=== PATIENT | female | born 1980 | race Caucasian/White ===

== ENCOUNTER 2020-04-08 11:55 | Outpatient (REF) | payer OTHER, SELFPAY | END 2020-04-08 11:56 | disposition home or self-care (01) | LOC: HO.LNP 11:55 | PROVIDERS: Visit Provider Internal Medicine Medical Oncology | DX: L08.9 Local infection of the skin and subcutaneous tissue, unspecified (principal) | CPT/HCPCS: 87071; 87147; 87205 ==

== ENCOUNTER 2020-10-19 09:02 | Outpatient (REF) | payer OTHER, SELFPAY ==
[2020-10-19 10:21] LABS: MANUAL DIFF FLAG NO
[2020-10-19 10:26] LABS: Basophils Absolute Auto 0.1 X10*3/uL (0.0-0.2); Basophils Percent Auto 0.4 % (0-2); Eosinophils Absolute Auto 0.4 X10*3/uL (0.0-0.4); Eosinophils Percent Auto 3.6 % (0-4); Hematocrit 46.3 % (37-47); Hemoglobin 15.8 g/dl (12.0-16.0); Imm Gran Abs Auto 0.17 X10*3/uL (0.00-0.03); Imm Gran Pct Auto 1.5 % (0.0-0.4); Lymphocytes Absolute Auto 2.7 X10*3/uL (1.2-4.9); Lymphocytes Percent Auto 23.6 % (20-40); Mean Corpuscular HGB Conc 34.1 g/dl (31.0-35.0); Mean Corpuscular Hemoglobin 32.1 pg (27.0-33.0); Mean Corpuscular Volume 94.1 fL (80-98); Mean Platelet Volume 9.8 fL (9.4-12.3); Monocytes Absolute Auto 0.6 X10*3/uL (0.1-1.2); Neutrophils Absolute Auto 7.5 X10*3/uL (2.0-8.3); Neutrophils Percent Auto 65.9 % (45-73); Platelet Count 273 X10*3/uL (160-400); Red Blood Count 4.92 X10*6/uL (4.20-5.50); White Blood Count 11.4 X10*3/uL (4.8-10.8)
[2020-10-19 10:51] LABS: Alanine Aminotransferase 63 U/L (0-31); Albumin Level 3.9 g/dL (3.5-5.0); Alkaline Phosphatase 100 U/L (39-117); Anion Gap 14 (12-20); Aspartate Amino Transferase 38 U/L (5-31); Bilirubin Total 0.4 mg/dL (0.0-1.0); Blood Urea Nitrogen 10 mg/dL (9-16); Calcium 8.7 mg/dL (8.4-10.2); Carbon Dioxide 22 mmol/L (22-29); Chloride 105 mmol/L (96-108); Cholesterol 148 mg/dL; Estimated Glomerular Filt Rate > 60; Glucose Fasting 328 mg/dL (60-99); HDL Cholesterol 24 mg/dL; Sodium 137 mmol/L (135-145); Total Protein 6.3 g/dL (6.5-8.0); Triglycerides 416 mg/dL
[2020-10-19 11:10] LABS: Free T4 (Free Thyroxine) 1.01 ng/dL (0.71-1.85); Thyroid Stimulating Hormone 1.17 uIU/mL (0.32-4.0)
== END 2020-10-19 09:03 | disposition home or self-care (01) ==
LOC: HO.10HDL 09:02
PROVIDERS: Visit Provider Internal Medicine Medical Oncology
DX: E66.01 Morbid (severe) obesity due to excess calories (principal); E28.2 Polycystic ovarian syndrome; R40.0 Somnolence
CPT/HCPCS: 36415; 80053; 80061; 84439; 84443; 85025

== ENCOUNTER 2021-03-19 09:22 | Outpatient (REF) | payer OTHER, SELFPAY ==
[2021-03-19 11:29] LABS: MANUAL DIFF FLAG NO
[2021-03-19 11:35] LABS: Basophils Percent Auto 0.3 % (0-2); Eosinophils Absolute Auto 0.4 X10*3/uL (0.0-0.4); Eosinophils Percent Auto 2.7 % (0-4); Hematocrit 44.3 % (37-47); Hemoglobin 15.3 g/dl (12.0-16.0); Imm Gran Abs Auto 0.17 X10*3/uL (0.00-0.03); Imm Gran Pct Auto 1.2 % (0.0-0.4); Lymphocytes Absolute Auto 2.9 X10*3/uL (1.2-4.9); Lymphocytes Percent Auto 21.2 % (20-40); Mean Corpuscular HGB Conc 34.5 g/dl (31.0-35.0); Mean Corpuscular Hemoglobin 32.3 pg (27.0-33.0); Mean Corpuscular Volume 93.5 fL (80-98); Monocytes Absolute Auto 0.6 X10*3/uL (0.1-1.2); Monocytes Percent Auto 4.4 % (2-11); Neutrophils Absolute Auto 9.7 X10*3/uL (2.0-8.3); Neutrophils Percent Auto 70.2 % (45-73); Platelet Count 324 X10*3/uL (160-400); Red Blood Count 4.74 X10*6/uL (4.20-5.50); Red Cell Distribution Width 11.9 % (11.0-16.0); White Blood Count 13.8 X10*3/uL (4.8-10.8)
[2021-03-19 12:19] LABS: Estimated Average Glucose 197 mg/dL; Hemoglobin A1c % 8.5 %
[2021-03-19 12:22] LABS: Alanine Aminotransferase 50 U/L (0-31); Albumin Level 3.9 g/dL (3.5-5.0); Alkaline Phosphatase 70 U/L (39-117); Anion Gap 15 (12-20); Aspartate Amino Transferase 34 U/L (5-31); Bilirubin Total 0.4 mg/dL (0.0-1.0); Blood Urea Nitrogen 9 mg/dL (9-16); Calcium 9.1 mg/dL (8.4-10.2); Carbon Dioxide 22 mmol/L (22-29); Chloride 103 mmol/L (96-108); Cholesterol 137 mg/dL; Estimated Glomerular Filt Rate > 60; Glucose Fasting 267 mg/dL (60-99); HDL Cholesterol 23 mg/dL; LDL Cholesterol Calculated 70 mg/dl; Sodium 136 mmol/L (135-145); Total Protein 6.2 g/dL (6.5-8.0); Triglycerides 223 mg/dL
[2021-03-19 12:23] LABS: Microalbum/Creatinine Ratio Ur 5.2 ug/mg cr
== END 2021-03-19 09:23 | disposition home or self-care (01) ==
LOC: HO.HMGCLDS 09:22
PROVIDERS: PCP Internal Medicine Medical Oncology; Visit Provider Internal Medicine Medical Oncology
DX: E11.9 Type 2 diabetes mellitus without complications (principal); E66.01 Morbid (severe) obesity due to excess calories
CPT/HCPCS: 36415; 80053; 80061; 82043; 83036; 85025

== ENCOUNTER 2021-06-07 10:43 | Outpatient (REF) | payer OTHER, SELFPAY ==
[2021-06-07 14:02] LABS: MANUAL DIFF FLAG NO
[2021-06-07 14:07] LABS: Basophils Percent Auto 0.3 % (0-2); Eosinophils Absolute Auto 0.2 X10*3/uL (0.0-0.4); Eosinophils Percent Auto 1.3 % (0-4); Hematocrit 46.1 % (37.0-47.0); Hemoglobin 15.6 g/dl (12.0-16.0); Imm Gran Abs Auto 0.11 X10*3/uL (0.00-0.03); Imm Gran Pct Auto 0.9 % (0.0-0.4); Lymphocytes Absolute Auto 3.2 X10*3/uL (1.2-4.9); Lymphocytes Percent Auto 26.8 % (20-40); Mean Corpuscular HGB Conc 33.8 g/dl (31.0-35.0); Mean Corpuscular Hemoglobin 32.3 pg (27.0-33.0); Mean Corpuscular Volume 95.4 fL (80.0-98.0); Mean Platelet Volume 10.1 fL (9.4-12.3); Monocytes Absolute Auto 0.5 X10*3/uL (0.1-1.2); Monocytes Percent Auto 4.4 % (2-11); Neutrophils Absolute Auto 7.9 x10*3/uL (2.0-8.3); Neutrophils Percent Auto 66.3 % (45-73); Platelet Count 322 X10*3/uL (160-400); Red Blood Count 4.83 X10*6/uL (4.20-5.50); Red Cell Distribution Width 11.8 % (11.0-16.0); White Blood Count 11.9 X10*3/uL (4.8-10.8)
[2021-06-07 14:26] LABS: Estimated Average Glucose 197 mg/dL; Hemoglobin A1c % 8.5 %
[2021-06-07 14:28] LABS: Alanine Aminotransferase 37 U/L (0-31); Alkaline Phosphatase 64 U/L (39-117); Anion Gap 12 (12-20); Aspartate Amino Transferase 33 U/L (5-31); Bilirubin Total 0.2 mg/dL (0.0-1.0); Blood Urea Nitrogen 8 mg/dL (9-16); Calcium 9.1 mg/dL (8.4-10.2); Carbon Dioxide 26 mmol/L (22-29); Chloride 104 mmol/L (96-108); Cholesterol 149 mg/dL; Estimated Glomerular Filt Rate > 60; Glucose Fasting 188 mg/dL (60-99); HDL Cholesterol 23 mg/dL; LDL Cholesterol Calculated 81 mg/dl; Potassium 4.4 mmol/L (3.3-5.1); Sodium 138 mmol/L (135-145); Total Protein 6.5 g/dL (6.5-8.0); Triglycerides 226 mg/dL
== END 2021-06-07 10:44 | disposition home or self-care (01) ==
LOC: HO.HMGCLDS 10:43
PROVIDERS: PCP Internal Medicine Medical Oncology; Visit Provider Internal Medicine Medical Oncology
DX: E66.01 Morbid (severe) obesity due to excess calories (principal); E11.9 Type 2 diabetes mellitus without complications
CPT/HCPCS: 36415; 80053; 80061; 83036; 85025

== ENCOUNTER → 2021-11-04 10:54 | Outpatient (REF) | payer OTHER, SELFPAY | LOC: HO.SL 10:54 | PROVIDERS: PCP Internal Medicine Medical Oncology; Visit Provider Internal Medicine Medical Oncology | DX: G47.30 Sleep apnea, unspecified (principal); R06.83 Snoring; E66.01 Morbid (severe) obesity due to excess calories | CPT/HCPCS: 95806 ==

== ENCOUNTER 2021-11-05 10:50 | Outpatient (REF) | payer OTHER, SELFPAY ==
[2021-11-05 13:42] LABS: MANUAL DIFF FLAG NO
[2021-11-05 13:45] LABS: Basophils Absolute Auto 0.1 X10*3/uL (0.0-0.2); Basophils Percent Auto 0.5 % (0-2); Eosinophils Absolute Auto 0.3 X10*3/uL (0.0-0.4); Eosinophils Percent Auto 2.9 % (0-4); Hematocrit 46.8 % (37.0-47.0); Hemoglobin 15.9 g/dl (12.0-16.0); Imm Gran Abs Auto 0.18 X10*3/uL (0.00-0.03); Imm Gran Pct Auto 1.7 % (0.0-0.4); Lymphocytes Absolute Auto 3.1 X10*3/uL (1.2-4.9); Lymphocytes Percent Auto 28.2 % (20-40); Mean Corpuscular Hemoglobin 31.8 pg (27.0-33.0); Mean Corpuscular Volume 93.6 fL (80.0-98.0); Mean Platelet Volume 10.2 fL (9.4-12.3); Monocytes Absolute Auto 0.6 X10*3/uL (0.1-1.2); Monocytes Percent Auto 5.7 % (2-11); Neutrophils Absolute Auto 6.6 x10*3/uL (2.0-8.3); Platelet Count 295 X10*3/uL (160-400); Red Cell Distribution Width 12.8 % (11.0-16.0); White Blood Count 10.8 X10*3/uL (4.8-10.8)
[2021-11-05 13:57] LABS: Alanine Aminotransferase 59 U/L (0-31); Albumin Level 3.8 g/dL (3.5-5.0); Alkaline Phosphatase 82 U/L (39-117); Anion Gap 14 (12-20); Aspartate Amino Transferase 47 U/L (5-31); Bilirubin Total 0.6 mg/dL (0.0-1.0); Blood Urea Nitrogen 9 mg/dL (9-16); Calcium 9.3 mg/dL (8.4-10.2); Carbon Dioxide 21 mmol/L (22-29); Chloride 103 mmol/L (96-108); Estimated Glomerular Filt Rate > 60; Glucose Fasting 284 mg/dL (60-99); Potassium 4.2 mmol/L (3.3-5.1); Sodium 134 mmol/L (135-145); Total Protein 6.3 g/dL (6.5-8.0)
[2021-11-05 14:04] LABS: Estimated Average Glucose 237 mg/dL; Hemoglobin A1c % 9.9 %
[2021-11-05 14:21] LABS: Creatinine Urine 74.87 mg/dL; Microalbum/Creatinine Ratio Ur 9.3 ug/mg cr
== END 2021-11-05 10:51 | disposition home or self-care (01) ==
LOC: HO.HMGCLDS 10:50
PROVIDERS: PCP Internal Medicine Medical Oncology; Visit Provider Internal Medicine Medical Oncology
DX: E66.01 Morbid (severe) obesity due to excess calories (principal); E11.9 Type 2 diabetes mellitus without complications
CPT/HCPCS: 36415; 80053; 82043; 83036; 85025

== ENCOUNTER 2021-12-10 08:28 | Outpatient (REF) | payer OTHER, SELFPAY | END 2021-12-10 08:29 | disposition home or self-care (01) | LOC: HO.HOSX 08:28 | PROVIDERS: Visit Provider Physician Assistant | DX: Z13.89 Encounter for screening for other disorder (principal) ==

== ENCOUNTER → 2022-02-09 08:44 | Outpatient (BNVA) | payer OTHER, SELFPAY | PROVIDERS: PCP Internal Medicine Medical Oncology; Visit Provider Physician Assistant Surgical | DX: E66.01 Morbid (severe) obesity due to excess calories (principal) | CPT/HCPCS: 99202 ==

== ENCOUNTER 2022-02-14 15:46 | Outpatient (REF) | payer OTHER, SELFPAY ==
[2022-02-15 14:11] LABS: H Pylori Breath Test Positive (Negative)
== END 2022-02-14 15:47 | disposition home or self-care (01) ==
LOC: HO.LNP 15:46
PROVIDERS: Visit Provider Physician Assistant Surgical
DX: E66.01 Morbid (severe) obesity due to excess calories (principal)
CPT/HCPCS: 83013

== ENCOUNTER → 2022-02-15 12:43 | Outpatient (REF) | payer OTHER, SELFPAY ==
--- NOTE | ~2022-02-15 | XR_ITS ---
EXAMINATION: XR CHEST CLINICAL INFORMATION: Morbid/severe obesity due to excess calories. COMPARISON: Chest 07/08/2019 TECHNIQUE: 2 views of the chest were obtained. FINDINGS: The lungs are well-expanded with minimal haziness in the right CP angle which could be atelectasis or scarring. Rest of the lungs are clear. The heart size and pulmonary vascularity is normal. No gross bony abnormality seen. XR/XR chest 2V IMPRESSION: Suspect minimal scarring or atelectasis right middle lobe.
--- NOTE | 2022-02-15 12:48 | ECG_ITS ---
Test Reason : E66.01 Blood Pressure : / mmHG Vent. Rate : 098 BPM Atrial Rate : 098 BPM P-R Int : 146 ms QRS Dur : 090 ms QT Int : 354 ms P-R-T Axes : 050 020 057 degrees QTc Int : 451 ms Normal sinus rhythm Normal ECG When compared with ECG of 29-APR-2013 23:52, No significant change was found Referred By: Francis Laureano Electronically Signed By:KAYLAN MARIN
== END ==
LOC: HO.CARD 12:43
PROVIDERS: PCP Internal Medicine Medical Oncology; Visit Provider Physician Assistant Surgical
DX: E66.01 Morbid (severe) obesity due to excess calories (principal)
CPT/HCPCS: 71046; 93005

== ENCOUNTER 2022-02-18 10:38 | Outpatient (REF) | payer OTHER, SELFPAY ==
[2022-02-18 11:03] LABS: MANUAL DIFF FLAG NO
[2022-02-18 11:12] LABS: Basophils Absolute Auto 0.1 X10*3/uL (0.0-0.2); Basophils Percent Auto 0.5 % (0-2); Eosinophils Absolute Auto 0.3 X10*3/uL (0.0-0.4); Eosinophils Percent Auto 2.3 % (0-4); Hematocrit 44.9 % (37.0-47.0); Hemoglobin 15.5 g/dl (12.0-16.0); Imm Gran Pct Auto 0.9 % (0.0-0.4); Lymphocytes Absolute Auto 2.9 X10*3/uL (1.2-4.9); Lymphocytes Percent Auto 26.1 % (20-40); Mean Corpuscular HGB Conc 34.5 g/dl (31.0-35.0); Mean Corpuscular Hemoglobin 31.8 pg (27.0-33.0); Mean Corpuscular Volume 92.2 fL (80.0-98.0); Monocytes Absolute Auto 0.6 X10*3/uL (0.1-1.2); Monocytes Percent Auto 5.1 % (2-11); Neutrophils Absolute Auto 7.2 x10*3/uL (2.0-8.3); Neutrophils Percent Auto 65.1 % (45-73); Platelet Count 291 X10*3/uL (160-400); Red Blood Count 4.87 X10*6/uL (4.20-5.50); Red Cell Distribution Width 12.2 % (11.0-16.0); White Blood Count 11.1 X10*3/uL (4.8-10.8)
[2022-02-18 11:41] LABS: Estimated Average Glucose 206 mg/dL; Hemoglobin A1c % 8.8 %
[2022-02-18 11:58] LABS: Ferritin 110 ng/mL (10-122); Insulin 18 uU/mL (2-29); Vitamin D 25-OH Total 8.2 ng/mL (>30)
[2022-02-18 11:59] LABS: Alanine Aminotransferase 53 U/L (0-31); Alkaline Phosphatase 56 U/L (39-117); Anion Gap 15 (12-20); Aspartate Amino Transferase 45 U/L (5-31); Bilirubin Total 0.5 mg/dL (0.0-1.0); Blood Urea Nitrogen 12 mg/dL (9-16); C Reactive Protein 0.72 mg/dL (< or = 0.50); Calcium 9.1 mg/dL (8.4-10.2); Carbon Dioxide 20 mmol/L (22-29); Chloride 108 mmol/L (96-108); Cholesterol 169 mg/dL; Estimated Glomerular Filt Rate > 60; Glucose Random 162 mg/dL (60-115); HDL Cholesterol 24 mg/dL; Iron 116 mcg/dL (30-160); LDL Cholesterol Calculated 110 mg/dl; Percent Iron Saturation 39 % (15-50); Potassium 4.2 mmol/L (3.3-5.1); Sodium 139 mmol/L (135-145); Total Iron Binding Capacity 295 mcg/dL (228-428); Total Protein 6.4 g/dL (6.5-8.0); Triglycerides 175 mg/dL; Unsaturated Iron Binding 179 ug/dL
[2022-02-18 12:23] LABS: Folate 13.7 ng/mL (> or = 4.0); Vitamin B12 408 pg/mL (200-900)
[2022-02-20 13:16] LABS: Calcium (PTHI) 8.9 mg/dL (8.6-10.2); PTHI 104 pg/mL (16-77)
[2022-02-22 14:01] LABS: Zinc 56 mcg/dL (60-130)
[2022-02-23 20:12] LABS: Vitamin A 41 mcg/dL (38-98)
[2022-02-24 06:11] LABS: Vitamin B1 <6 nmol/L (8-30)
== END 2022-02-18 10:39 | disposition home or self-care (01) ==
LOC: HO.LAB 10:38
PROVIDERS: PCP Internal Medicine Medical Oncology; Visit Provider Physician Assistant Surgical
DX: E66.01 Morbid (severe) obesity due to excess calories (principal)
CPT/HCPCS: 36415; 80053; 80061; 82306; 82607; 82728; 82746; 83036; 83525; 83540; 83970; 84425; 84443; 84590; 84630; 85025; 86140

== ENCOUNTER → 2022-02-25 10:23 | Outpatient (BNVA) | payer OTHER, SELFPAY | PROVIDERS: PCP Internal Medicine Medical Oncology; Referring Provider Physician Assistant Surgical; Visit Provider Dietitian, Registered | DX: E66.9 Obesity, unspecified (principal) | CPT/HCPCS: 97802 ==

== ENCOUNTER → 2022-03-01 09:00 | Outpatient (BNVA) | payer OTHER, SELFPAY | PROVIDERS: PCP Internal Medicine Medical Oncology; Referring Provider Physician Assistant Surgical; Visit Provider Counselor Mental Health | DX: F31.32 Bipolar disorder, current episode depressed, moderate (principal); F43.10 Post-traumatic stress disorder, unspecified; E66.9 Obesity, unspecified | CPT/HCPCS: 90791 ==

== ENCOUNTER → 2022-03-18 10:16 | Outpatient (BNVA) | payer OTHER, SELFPAY | PROVIDERS: PCP Internal Medicine Medical Oncology; Visit Provider Physician Assistant Surgical | DX: Z11.2 Encounter for screening for other bacterial diseases (principal) | CPT/HCPCS: 99211 ==

== ENCOUNTER 2022-03-18 12:46 | Outpatient (REF) | payer OTHER, SELFPAY ==
[2022-03-20 11:34] LABS: H Pylori Breath Test Negative (Negative)
== END 2022-03-18 12:47 | disposition home or self-care (01) ==
LOC: HO.LNP 12:46
PROVIDERS: Visit Provider Physician Assistant
DX: Z01.818 Encounter for other preprocedural examination (principal)
CPT/HCPCS: 83013

== ENCOUNTER 2022-03-31 08:48 | Outpatient (REF) | payer OTHER, SELFPAY ==
--- NOTE | ~2022-03-31 | US_ITS ---
EXAMINATION: US COMPLETE ABDOMEN WITH LIVER ELASTOGRAPHY CLINICAL INFORMATION: Obesity COMPARISON: Previous CT of the abdomen and pelvis from 2010 and abdominal ultrasound from 2008 TECHNIQUE: Real-time imaging of the abdominal viscera. Noninvasive ultrasound liver fibrosis assessment is performed using Riri ElastPQ point quantification shear wave elastography (2D-SWE) with a C5-2 MHz transducer. Multiple elastography samples are obtained. FINDINGS: PANCREAS: Normal. ABDOMINAL AORTA: The proximal, middle, and distal aortic segments are normal in caliber. INFERIOR VENA CAVA: Visualized portions are normal. LIVER: Liver echotexture is increased. The liver is enlarged. The liver is normal in contour. No focal liver lesion or biliary duct dilatation. The right lobe measures 21 cm in length. The left lobe measures 16 cm in length. Portal flow is normal/hepatopedal Shear wave liver elastography median stiffness is 0.22 m/s (reference: normal median stiffness is 1.3 m/s or less). IQR/median stiffness to assess sampling precision is 1.6 (reference: good quality data set is IQR/median stiffness of 0.15 or less). GALLBLADDER: Normal. The gallbladder is physiologically distended without evidence of stones, sludge, polyps, wall thickening or pericholecystic fluid. COMMON BILE DUCT: Normal in caliber measuring 0.5 cm in diameter. RIGHT KIDNEY: Normal. No hydronephrosis. No renal calculi or focal parenchymal lesions. The kidney measures 10.3 cm in maximum dimension. LEFT KIDNEY: Normal. No hydronephrosis. No renal calculi or focal parenchymal lesions. The kidney measures 12.2 cm in maximum dimension. SPLEEN: Normal. The spleen measures 12 cm in maximum dimension. FREE FLUID: None. US/US abdomen comp w elastography IMPRESSION: 1. Impression: Enlarged echogenic liver probably representing fatty infiltration. 2. Liver elastography: Limited due to sampling error. In the absence of other known clinical signs, rules out compensated advanced chronic liver disease. REFERENCE: Society of Radiologists in Ultrasound Liver Stiffness Thresholds (2020): LIVER STIFFNESS THRESHOLDS: *Liver Stiffness equal or less than 1.3 m/s: High probability of being normal. *Liver Stiffness less than 1.7 m/s: In the absence of other known clinical signs, rules out compensated advanced chronic liver disease. *Liver Stiffness 1.7-2.1 m/s: Suggestive of compensated advanced chronic liver disease but need further test for confirmation. *Liver Stiffness over 2.1 m/s: Rules in compensated advanced chronic liver disease. *Liver Stiffness over 2.4 m/s: Suggestive of clinically significant portal hypertension. QUALITY OF DATA SET: *IQR/Median value equal or less than 0.15 implies a quality data set. *IQR/Median value over 0.15 implies a poor quality data set. SIGNIFICANT CHANGE FROM PRIOR EXAM: Significant change if liver stiffness measurement is 10% or greater from prior exam. OTHER CONSIDERATIONS: The stage of liver fibrosis may be overestimated in the setting of acute hepatitis, liver inflammation, elevated liver function tests, hepatic vascular congestion, obstructive cholestasis, non-fasting state, and infiltrative diseases such as amyloidosis and lymphoma. In some patients with NAFLD, the liver stiffness thresholds for compensated advanced chronic liver disease may be lower. In causes other than viral hepatitis and NAFLD, liver stiffness thresholds are not well established.
--- NOTE | ~2022-03-31 | FL_ITS ---
EXAMINATION: XR FLUOROSCOPY UPPER GI WITH AIR CLINICAL INFORMATION: Morbid obesity COMPARISON: None TECHNIQUE: Air-contrast upper GI examination FINDINGS: There is normal apposition of the vocal cords while saying E. There is normal elevation of the soft palate while saying candy. Patient swallowed thin and thick barium and half-inch diameter barium tablet without difficulty. No nasopharyngeal reflux or tracheal aspiration identified. There is normal esophageal motility without evidence of persistent stricture or ulcerations/erosions. No hiatal hernia was identified. There is noted to be mild gastroesophageal reflux within the distal third of the esophagus which cleared rapidly. The stomach demonstrated normal distensibility without evidence of abnormal mass or ulceration. There was no delay in gastric emptying. The duodenal bulb and sweep appeared unremarkable. FLUOROSCOPY TIME: 1.6 minutes DOSE AREA PRODUCT: 12.297 Gy-cm2 (domínguez-centimeter squared) FL/FL upper GI w air IMPRESSION: Mild gastroesophageal reflux. Otherwise unremarkable air-contrast upper GI examination.
== END 2022-03-31 08:49 | disposition home or self-care (01) ==
LOC: HO.US 08:48
PROVIDERS: Visit Provider Physician Assistant Surgical
DX: E66.01 Morbid (severe) obesity due to excess calories (principal)
CPT/HCPCS: 74246; 76705; 76981

== ENCOUNTER 2022-04-14 12:06 | Outpatient (REF) | payer OTHER, SELFPAY ==
[2022-04-14 12:27] LABS: MANUAL DIFF FLAG NO
[2022-04-14 12:39] LABS: Basophils Absolute Auto 0.1 X10*3/uL (0.0-0.2); Basophils Percent Auto 0.4 % (0-2); Eosinophils Absolute Auto 0.2 X10*3/uL (0.0-0.4); Hematocrit 46.4 % (37.0-47.0); Hemoglobin 16.2 g/dl (12.0-16.0); Imm Gran Abs Auto 0.06 X10*3/uL (0.00-0.03); Imm Gran Pct Auto 0.5 % (0.0-0.4); Lymphocytes Absolute Auto 3.3 X10*3/uL (1.2-4.9); Lymphocytes Percent Auto 29.1 % (20-40); Mean Corpuscular HGB Conc 34.9 g/dl (31.0-35.0); Mean Corpuscular Hemoglobin 32.7 pg (27.0-33.0); Mean Corpuscular Volume 93.7 fL (80.0-98.0); Mean Platelet Volume 9.1 fL (9.4-12.3); Monocytes Absolute Auto 0.5 X10*3/uL (0.1-1.2); Monocytes Percent Auto 4.5 % (2-11); Neutrophils Absolute Auto 7.2 x10*3/uL (2.0-8.3); Neutrophils Percent Auto 63.5 % (45-73); Platelet Count 376 X10*3/uL (160-400); Red Blood Count 4.95 X10*6/uL (4.20-5.50); Red Cell Distribution Width 12.6 % (11.0-16.0); White Blood Count 11.4 X10*3/uL (4.8-10.8)
[2022-04-14 12:45] LABS: Prothrombin Time 11.7 SEC (10.0-13.1)
[2022-04-14 12:47] LABS: Partial Thromboplastin Time 31.7 SEC (26.0-36.4)
[2022-04-14 12:52] LABS: Estimated Average Glucose 120 mg/dL; Hemoglobin A1c % 5.8 %
[2022-04-14 13:19] LABS: Alanine Aminotransferase 25 U/L (0-31); Albumin Level 4.2 g/dL (3.5-5.0); Alkaline Phosphatase 57 U/L (39-117); Anion Gap 17 (12-20); Aspartate Amino Transferase 16 U/L (5-31); Bilirubin Total 0.5 mg/dL (0.0-1.0); Blood Urea Nitrogen 14 mg/dL (9-16); C Reactive Protein 0.71 mg/dL (< or = 0.50); Calcium 9.6 mg/dL (8.4-10.2); Carbon Dioxide 21 mmol/L (22-29); Chloride 108 mmol/L (96-108); Cholesterol 165 mg/dL; Estimated Glomerular Filt Rate > 60; Glucose Random 168 mg/dL (60-115); HDL Cholesterol 27 mg/dL; LDL Cholesterol Calculated 106 mg/dl; Potassium 4.5 mmol/L (3.3-5.1); Sodium 141 mmol/L (135-145); Total Protein 6.6 g/dL (6.5-8.0); Triglycerides 162 mg/dL
[2022-04-14 13:43] LABS: Insulin 17 uU/mL (2-29); TSH reflex Free T4 0.84 uIU/mL (0.32-4.0)
== END 2022-04-14 12:07 | disposition home or self-care (01) ==
LOC: HO.LAB 12:06
PROVIDERS: PCP Internal Medicine Medical Oncology; Visit Provider Surgery
DX: E66.9 Obesity, unspecified (principal); Z68.38 Body mass index [BMI] 38.0-38.9, adult
CPT/HCPCS: 36415; 80053; 80061; 83036; 83525; 84443; 85025; 85610; 85730; 86140

== ENCOUNTER 2022-04-19 08:04 | Inpatient (IN) | payer OTHER, SELFPAY ==
[2022-04-13 09:20] VITALS: BMI 37.5
--- NOTE | 2022-04-15 21:36 | MHC.SHP ---
Pre-Procedural Eval Section A Date of Service: 04/15/22 The patient is an INPATIENT: Yes The History & Physical has been completed within 30 days and I have reviewed it.: Yes Section B Chief Complaint: obesity Relevant Family History (Specify if Yes): No Relevant Social History: None Present Medications: None Medical History: No relevant PMH History of Previous Operations: No relevant previous surgery Allergies: Allergies Allergy/AdvReac Type Severity Reaction Status Date / Time amoxicillin [Amoxicillin] Allergy Unknown HIVES Verified 04/13/22 08:27 Penicillins Allergy Unknown HIVES Verified 04/13/22 08:27 Sulfa (Sulfonamide Allergy Unknown hives Verified 04/13/22 08:27 Antibiotics) sulfamethoxazole Allergy Unknown HIVES Verified 04/13/22 08:27 [From Bactrim] trimethoprim [From Bactrim] Allergy Unknown HIVES Verified 04/13/22 08:27 Review of Systems Sugical H&P ROS: Negative: Constitution, Cardiovascular, Respiratory, Neurological, Psychiatric, Hem-Onc, Allergic/Immunologic, Gastrointestinal, Genitourinary, Musculoskeletal, Integumentary, Endocrine and Eyes/Ears/Nose/Throat Exam Surgical H&P Exam: Normal: HEENT, Normal: Heart, Normal: Lungs, Normal: Extremities, Normal: Abdomen, Normal: Skin and Normal: Neurological Plan Diagnosis/Plan: Unchanged I have reviewed the history and physical and performed a pertinent physical examination on my patient. No changes have occurred unless specified.
--- NOTE | 2022-04-18 10:32 | HO.ANESPROP2 ---
Documented by User: Kia Norwood NP 04/18/22 10:38 HPI - Anesthesia Eval Consult details Narrative: 41yo F for Gastrectomy Sleeve,EGD,diaphragmatic hernia,poss ventral hernia,poss open, PMFSH Active Problems Active Problems: All Active Problems (Updated 04/13/22 @ 08:27 by Beatriz Polanco RN) Morbid obesity (Acute) Diabetes (Acute) Anxiety and depression (Acute) PTSD (post-traumatic stress disorder) (Acute) Zinc deficiency (Acute) Hyperlipidemia (Acute) Elevated liver enzymes (Acute) Bipolar 1 disorder, depressed, moderate (Acute) Obesity (Acute) BMI 38.0-38.9,adult (Acute) Back pain (Acute) Insomnia (Acute) Non-insulin dependent type 2 diabetes mellitus (Acute) Past Medical History Medical History Anxiety Back pain History of seizure Hx of bronchitis Insomnia Non-insulin dependent type 2 diabetes mellitus Family History Family History Mother Arthritis Father No problems noted. Sister No problems noted. Brother No problems noted. Daughter No problems noted. Son No problems noted. Surgical History Surgical History History of Hx of hernia repair Hx of tonsillectomy Social History Social History Are you a primary career orientation teacher to a significant other at home: No Do you presently have visiting nurse or other home services: No Alcohol intake: never Patient Tobacco Use Status: Current everyday Tobacco user Tobacco use type: Cigarette Cigarette Packs Per Day: 0.5 Cigarettes Per Day: 10.0 Years Smoked: 20 Patient Given Instructions on How to Stop Smoking: Yes Date Education Initiated: 04/13/22 Use of substances other than those prescribed or required for medical reasons: No Have you been hit, kicked, punched, or otherwise hurt by someone within the past year? If so, by whom?: No Are you DNR?: No Advance Directives: No Advance Directives Information Provided: Yes (Mailed with instructions) Advance Directives on File: No Recently lost weight without trying: No How much weight loss: 14-23 pounds Eating poorly because of decreased appetite: No Nutrition screen score: 2 Nutrition Risks: No Nutritional Risk Patient : No FDLMP: 12/09/21 : No Meds Allergies Allergy/AdvReac Type Severity Reaction Status Date / Time amoxicillin [Amoxicillin] Allergy Unknown HIVES Verified 04/19/22 08:15 Penicillins Allergy Unknown HIVES Verified 04/19/22 08:15 Sulfa (Sulfonamide Allergy Unknown hives Verified 04/19/22 08:15 Antibiotics) sulfamethoxazole Allergy Unknown HIVES Verified 04/19/22 08:15 [From Bactrim] trimethoprim [From Bactrim] Allergy Unknown HIVES Verified 04/19/22 08:15 Home Medications Medication Instructions Recorded Confirmed Last Taken Type doxepin 25 mg capsule 25 mg PO BEDTIME 02/01/22 04/19/22 04/18/22 History glipizide 10 mg tablet 10 mg PO DAILY 02/01/22 04/13/22 04/14/22 History hydroxyzine HCl 50 mg tablet 50 mg PO BEDTIME 02/01/22 04/13/22 04/11/22 History metformin 500 mg tablet 1,000 mg PO BID 02/01/22 04/13/22 04/14/22 History paroxetine HCl 10 mg tablet 30 mg PO DAILY 02/01/22 04/13/22 04/18/22 History clonazepam 2 mg tablet 2 mg PO BID 02/28/22 04/13/22 04/19/22 06:30 History dulaglutide 1.5 mg/0.5 mL 1.5 mg subcut QWEEK 02/28/22 04/13/22 04/10/22 History subcutaneous pen injector (Trulicity) lamotrigine 200 mg tablet 200 mg PO BID 02/28/22 04/13/22 04/19/22 06:30 History (Lamictal) pioglitazone 30 mg tablet 30 mg PO DAILY 02/28/22 04/13/22 04/14/22 History lurasidone 40 mg tablet (Latuda) 1 tab PO BEDTIME 04/19/22 04/19/22 04/18/22 History Exam Exam Date and Time: April 18, 2022 1032 Height,Weight and Vital Signs: Height 5 ft 3 in Weight 96.162 kg Pertinent Lab Results Pertinent Lab Results: Laboratory Tests 04/14/22 12:20 Blood Type O Positive Antibody Screen NEGATIVE Laboratory Tests 04/14/22 04/14/22 12:27 12:27 WBC 11.4 H Hgb 16.2 H Hct 46.4 Plt Count 376 D Sodium 141 Potassium 4.5 Chloride 108 Carbon Dioxide 21 L BUN 14 Creatinine 0.94 Narrative Narrative: EKG 02/2022 Vent. Rate : 098 BPM ? ? Atrial Rate : 098 BPM ?? P-R Int : 146 ms? QRS Dur : 090 ms ? ? QT Int : 354 ms ? ? ? P-R-T Axes : 050 020 057 degrees ?? QTc Int : 451 ms ? Normal sinus rhythm Normal ECG When compared with ECG of 29-APR-2013 23:52, No significant change was found Assessment and Plan Assessment Anesthesia Assessment: Chart Reviewed Documented by User: Samina Verduzco MD 04/19/22 11:40 [facility] Past Medical History Medical History Anxiety Back pain History of seizure Hx of bronchitis Insomnia Non-insulin dependent type 2 diabetes mellitus Family History Family History Mother Arthritis Father No problems noted. Sister No problems noted. Brother No problems noted. Daughter No problems noted. Son No problems noted. Surgical History Surgical History History of Hx of hernia repair Hx of tonsillectomy History of Problems with Anesthesia: No Social History Social History Are you a primary career orientation teacher to a significant other at home: No Do you presently have visiting nurse or other home services: No Alcohol intake: never Patient Tobacco Use Status: Current everyday Tobacco user Tobacco use type: Cigarette Cigarette Packs Per Day: 0.5 Cigarettes Per Day: 10.0 Years Smoked: 20 Patient Given Instructions on How to Stop Smoking: Yes Date Education Initiated: 04/13/22 Use of substances other than those prescribed or required for medical reasons: No Have you been hit, kicked, punched, or otherwise hurt by someone within the past year? If so, by whom?: No Are you DNR?: No Advance Directives: No Advance Directives Information Provided: Yes (Mailed with instructions) Advance Directives on File: No Recently lost weight without trying: No How much weight loss: 14-23 pounds Eating poorly because of decreased appetite: No Nutrition screen score: 2 Nutrition Risks: No Nutritional Risk Patient : No FDLMP: 12/09/21 : No Meds Allergies Allergy/AdvReac Type Severity Reaction Status Date / Time amoxicillin [Amoxicillin] Allergy Unknown HIVES Verified 04/19/22 08:15 Penicillins Allergy Unknown HIVES Verified 04/19/22 08:15 Sulfa (Sulfonamide Allergy Unknown hives Verified 04/19/22 08:15 Antibiotics) sulfamethoxazole Allergy Unknown HIVES Verified 04/19/22 08:15 [From Bactrim] trimethoprim [From Bactrim] Allergy Unknown HIVES Verified 04/19/22 08:15 Home Medications Medication Instructions Recorded Confirmed Last Taken Type doxepin 25 mg capsule 25 mg PO BEDTIME 02/01/22 04/19/22 04/18/22 History glipizide 10 mg tablet 10 mg PO DAILY 02/01/22 04/13/22 04/14/22 History hydroxyzine HCl 50 mg tablet 50 mg PO BEDTIME 02/01/22 04/13/22 04/11/22 History metformin 500 mg tablet 1,000 mg PO BID 02/01/22 04/13/22 04/14/22 History paroxetine HCl 10 mg tablet 30 mg PO DAILY 02/01/22 04/13/22 04/18/22 History clonazepam 2 mg tablet 2 mg PO BID 02/28/22 04/13/22 04/19/22 06:30 History dulaglutide 1.5 mg/0.5 mL 1.5 mg subcut QWEEK 02/28/22 04/13/22 04/10/22 History subcutaneous pen injector (Trulicity) lamotrigine 200 mg tablet 200 mg PO BID 02/28/22 04/13/22 04/19/22 06:30 History (Lamictal) pioglitazone 30 mg tablet 30 mg PO DAILY 02/28/22 04/13/22 04/14/22 History lurasidone 40 mg tablet (Latuda) 1 tab PO BEDTIME 04/19/22 04/19/22 04/18/22 History Exam Airway Mallampati Class: II TM Dist: >3cm Neck ROM: Full Loose/Missing/Broken Teeth: No Heart: RRR Lungs: CTA Assessment and Plan Assessment Anesthesia Assessment: Anesthesia Plan Discussed Final Anesthetic Review History of Problems with Anesthesia: No NPO: Yes ASA Class: III Final Preanesthetic Review: Consent Obtained/Reviewed Patient Risk: Intermediate Procedure Risk: Intermediate Anesthetic Plan Anesthetic Plan: GA Disposition: Standard PACU
[2022-04-18 12:53] LABS: COVID-19 Test Negative (Negative); IDNOW Serial# 16C4AD1C
[2022-04-19] VITALS (11 sets, daily range): BP systolic 118–153; BP diastolic 70–84; PULSE 75–97; RESP 15–20; TEMP 36.2–36.8; O2SAT 93–98
--- NOTE | 2022-04-19 08:21 | PHA.MEDREC ---
Pharmacy Consult ? Medication Reconciliation Pharmacy has reviewed the medication reconciliation done by Beatriz.
[2022-04-19 08:25] LABS: UPreg QC Valid YES; Urine Pregnancy NEGATIVE (NEGATIVE)
[2022-04-19] MEDS: Lactated Ringers 1,000 ML 999 ML IV (08:46)
[2022-04-19 08:51] LABS: Glucose, Whole Blood 170 mg/dL (60-115)
--- NOTE | 2022-04-19 10:31 | P.BOP_ITS ---
Brief Operative Note Date of Service: 04/19/22 Pre-op diagnosis: Severe obesity with comorbidities (see below) Post-op diagnosis: same (& severe hepatomegaly) Procedure: INITIAL PATIENT BMI ON PRESENTATION AT OUR OFFICE: 41,1 kg/m2 LAST BMI BEFORE SURGERY: 37.6 kg/m2 COMORBIDITIES: non-insulin dependent diabetes, depression, anxiety, back pain, GERD, liver steatosis, liver fibrosis, recurrent umbilical hernia repair, insomnia ?The patient presented to the Weight Management Program with significant obesity that was negatively impacting the patient's comorbidities as listed above.? The program is a phased program with a special focus on preoperative medical weight management to promote substantial weight loss and prepare the patients for the second phase of the program: bariatric surgery. The patient participated in an intensive weekly lifestyle ?intervention and exercise program during which the patient ?has lost between the initial office visit and the last preoperative visit 22.4lbs, or 9.66% of initial actual body weight. It was deemed appropriate for the patient to now have bariatric surgery. In light of the current Covid-19 pandemic and the well documented strong association of obesity and increased risk of worse outcomes if infected with Covid-19 (REFERENCES: https://pubmed.ncbi.nlm.nih.gov/58968772/ ,? https://pubmed.ncbi.nlm.nih.gov/01283252/ ), any delay in undergoing bariatric surgery may lead to the patient's worsening health condition and increased?risk of more severe Covid-19 disease if infected. In addition a recent?study from [facility] published in [employer] [facility] on 05/31/2021 ([email or web address]) found that, among patients with obesity, substantial weight loss achieved with surgery was associated with improved outcomes of COVID-19 infection. The findings suggest that obesity can be a modifiable risk factor for the severity of COVID-19 infection. In addition, the patient met the BMI-criteria for bariatric surgery based on the BMI on initial presentation. The patient should not be penalized for achieving such weight loss because ?it is not sustainable long-term without surgical intervention and it was achieved in preparation for bariatric surgery ?under my direction and based on my published research ([email or web address] and? https://www.soard.org/article/K5472-5457(03)29430-X/pdf ) ?that a 10% preoperative weight loss improves long-term weight loss after surgery and reduces perioperative complications.? Insurance carriers such as [facility] have endorsed my recommendations ?and have included in their policies criteria to include a 10% preoperative weight loss requirement. PROCEDURE: Esophago-gastroscopy, laparoscopic lysis of adhesions, laparoscopic sleeve gastrectomy and laparoscopic gastropexy INDICATIONS: This is a 41 year-old female who was electively scheduled for laparoscopic, possibly open sleeve gastrectomy. The risks and complications of the procedure were discussed with the patient in advance, particularly the possibility of ; pulmonary embolism; staple line leak; bleeding; GERD; cardiac, pulmonary, or renal complications; as well as long-term problems such as insufficient weight loss, vitamin deficiency, strictures, or ulcers. The patient understood all the risks, and was in agreement to proceed with surgery. DESCRIPTION OF PROCEDURE: After informed consent was obtained from the patient, the patient was given preoperative antibiotics, and was transferred to the operating room. After successful induction of general anesthesia, pneumatic compression devices were placed on both lower extremities. An upper endoscopy was performed next. The oropharynx and esophagus appeared to be within normal limits. There was a diaphragmatic hernia present of moderate size consistent with the findings of the preoperative upper GI. The stomach was entered. Then after all fluid and air were suctioned and the stomach was fully decompressed, the scope was withdrawn and secured in the mid esophagus. The patient was then prepped and draped in the usual sterile manner, and abdomin al access was established at the right upper quadrant with the Eugenia technique. A 12 mm blunt port was inserted, and the abdomen was insufflated with CO2 to a pressure of 15 mmHg. Under direct visualization, additional ports were placed, specifically two 5 mm Versi-step ports to the left upper quadrant, and a 5 mm Versi-Step port to the right upper quadrant. 1% lidocaine plain was used to infiltrate all port sites as well as all fascia defects. Due to severe hepatomegaly an additional 12mm Versi-step port was placed 4 cm inferior to the Eugenia port. Following that, the patient was placed in a steep reverse Trendelenburg position. An additional 5 mm port was placed to the right flank for the Mediflex retractor that was used to retract the left lobe of the liver. The gastro-esophageal fat pad was opened with the ultrasonic device (Thunderbeat, Olympus) and the anterior esophagus and hiatus were exposed. The angle of His was opened with the ultrasonic device the fundus of the stomach from any diaphragmatic and splenic attachments. I then opened the gastrocolic ligament between the transverse colon and the greater curvature of the stomach with the ultrasonic device to enter the lesser sac and facilitate the ligation of the short gastric vessels. I started at a mid-point along the greater curvature and using the Thunderbeat, all short gastric vessels were divided all the way to the angle of His until the left kwadwo was completely dissected at its entirety. I then divided the gastro-colic ligament distally to a distance of about 3-4 cm proximal to the pylorus. There were extensive congenital adhesions between the pancreas and posterior gastric wall. Those were lysed completely with the ultrasonic device. Adhesiolysis took approximately 45 min to complete. The stomach was then divided transversely with one Endo BETZY-45 purple, one BETZY- 45 orange loads and five BETZY-60 articulating orange loads using the AEON stapler and loads. Every effort was made that the gastric sleeve had a tubular shape and an even caliber throughout. Once the sleeve resection was completed, the staple line of the gastric sleeve was reinforced with Hemoclips. The resected stomach was retrieved without difficulty from the Eugenia port. A gastropexy was then performed in order to prevent postoperative GERD and partial gastric volvulus. Several interrupted 2.0 Surgidac sutures were placed between the sleeve's staple line and the previously divided greater omentum and gastro-colic ligament using the Endo-Stitch device. ?An upper endoscopy was performed. There was no narrowing at the GE junction. The scope was easily advanced all the way to the pylorus which was clearly visualized. There was no narrowing anywhere and the sleeve's caliber was even throughout. The sleeve's staple line was inspected and there was no evidence of ischemia, bleeding or dehiscence. At that point the gastroscope was withdrawn from the patient?s mouth while we were decompressing the bowel and the stomach from any remaining air. I looked into the lesser sac to see how the sleeve was situating and it was situating well. There was no bleeding from the staple line, spleen, or short gastric vessels. The Mediflex retractor was removed, and the undersurface of the liver was inspected and there was no bleeding. The patient was placed in supine position. I closed the fascial defect of the 12 mm port site with a figure of eight #1 Polysorb suture. Then 30cc of Ropivacaine plain with 10 mg of Dexamethasone were used to infiltrate the fascial closure as well as all skin incisions. A total of 7ml Zynrelef was applied in the Eugenia wound. At this point, the abdomen was deflated, all ports were removed under direct vision, and no bleeding was noted from any of the port sites. The skin incisions were irrigated with saline and were closed with 4-0 absorbable monofilament sutures. Steri-Strips and OpSites were used to cover all incisions. The patient was extubated and was transferred in stable condition to the recovery room for further care. I was present and performed all de la rosa parts of the procedure. 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 There were no residents to assist with this case. Eduardo Melo MD, PhD, FACS Surgeon: Harrison Melo MD Anesthesia: GETA, local and other (TAP block and 7ml Zynrelef) Was an Brim Flexer used for this Procedure?: No Brim Flexer: Beverly Veras Estimated blood loss (mL): 10 IV fluids (mL): 1,400 Urine output (mL): 0 (No Gimenez to record output) Pathology: other (Stomach) Condition: stable Disposition: PACU
--- NOTE | 2022-04-19 10:35 | PM.PNGS ---
Subjective Subjective Date of Service: 04/20/22 Interval history: Patient has mild incisional pain, but was able to ambulate and use the incentive spirometer. She is tolerating phase 1 bariatric diet Physical Exam Vital Signs: Vital Signs: Last Vital Signs Temp 97.6 F 04/19/22 08:35 Pulse 75 04/19/22 08:35 Resp 15 04/19/22 08:35 BP 118/70 04/19/22 08:35 Pulse Ox 98 04/19/22 08:35 O2 Del Method 04/19/22 08:35 BMI result Body Mass Index 37.5 GI: Inspection: Yes normal to inspection, Yes incision (clean, dry and intact) and Yes obesity Extrem: Right lower extremity: normal to inspection (no calf tenderness) Left lower extremity: normal to inspection (no calf tenderness) Objective Data Active Medications Lactated Ringer's (Lr) 1,000 mls @ 100 mls/hr IVCONT .Q10H CHARISSE Labs CBC & Chem 7: 04/20/22 05:03 04/20/22 05:03 Labs: Laboratory Results - last 24 hr 04/18/22 04/19/22 04/19/22 12:10 08:15 08:38 POC Glucose 170 H Urine Test NEGATIVE COVID-19 (CLAUDE) Negative COVID-19 Clin Com See Note Procedures Date of Service Date of Service: 04/20/22 Progress Note: A&P Assessment and plan (1) Obesity: Status: Acute Assessment and Plan: s/p laparoscopic sleeve gastrectomy, lysis of adhesions and gastropexy Doing well Check am labs. If OK, will discharge home (2) BMI 37.0-37.9, adult: Status: Acute (3) Non-insulin dependent type 2 diabetes mellitus: Status: Acute (4) Insomnia: Status: Acute (5) Back pain: Status: Acute (6) Bipolar 1 disorder, depressed, moderate: Status: Acute (7) Hyperlipidemia: Status: Acute (8) PTSD (post-traumatic stress disorder): Status: Acute (9) Anxiety and depression: Status: Acute (10) Steatosis, liver: Status: Acute (11) Liver fibrosis: Status: Acute (12) GERD (gastroesophageal reflux disease): Status: Acute (13) S/P laparoscopic sleeve gastrectomy: Status: Acute (14) Hepatomegaly: Status: Acute (15) Intra-abdominal adhesions: Status: Acute Time Spent With Patient Time: Total time spent is greater than 50% in coordination of care (as documented) at patient's floor/unit and/or counseling patient: Quality Stroke Does the patient have a stroke diagnosis?: No VTE Prior VTE?: No VTE Risk Level:: Surgical - moderate VTE Device Contraindication: N/A - Device Ordered VTE Drug Contraindication: Treatment Not Indicated
--- NOTE | 2022-04-19 13:23 | PM.DS ---
DS: Providers Provider Date of Service: 04/20/22 Date of admission: 04/19/22 08:04 Primary care physician: Stevie Bhatti MD DS: Diagnosis Discharge Diagnosis (1) Obesity: Status: Acute (2) BMI 37.0-37.9, adult: Status: Acute (3) Non-insulin dependent type 2 diabetes mellitus: Status: Acute (4) Insomnia: Status: Acute (5) Back pain: Status: Acute (6) Bipolar 1 disorder, depressed, moderate: Status: Acute (7) Hyperlipidemia: Status: Acute (8) PTSD (post-traumatic stress disorder): Status: Acute (9) Anxiety and depression: Status: Acute (10) Steatosis, liver: Status: Acute (11) Liver fibrosis: Status: Acute (12) GERD (gastroesophageal reflux disease): Status: Acute DS: Summary Hospital Course Hospital Course: ADMITTING DIAGNOSIS: morbid obesity, PTSE, anx/depression, liver steatosis, NIDDM DISCHARGE DIAGNOSIS: same, s/p laparoscopic sleeve gastrectomy PAST SURGICAL HISTORY: section, abdominal hernia repair PROCEDURE: upper endoscopy, laparoscopic sleeve gastrectomy DISCHARGE SUMMARY: History of Present Illness: The patient is a 41 year-old woman with a BMI of 41.1 kg/m2 and associated co-morbidities as described above. The patient had extensive work-up,lost 19.4 lbs preoperatively and was electively scheduled for laparoscopic, possible open sleeve gastrectomy and gastropexy. Risks and complications of the surgery were discussed with the patient in advance, particularly the possibility of , pulmonary embolism, anastomotic leak, bleeding, bowel injury, GERD, cardiac, renal or pulmonary complications. The patient understood all the risks and was in agreement with the surgical plan. Hospital Course: The patient underwent an uneventful laparoscopic sleeve gastrectomy with gastropexy on the day of admission. Postoperatively, the patient was transferred to the surgical floor. The patient received IV Acetaminophen and IV dilaudid for pain control. Patient was started on bariatric phase 1 diet POD #0. On postoperative day one, the patient was feeling well without nausea, vomiting, fevers, or tachycardia. The patient had some mild incisional pain and the abdomen was soft. On the morning of postoperative day one, the patient was continued on 1 ounce of water or ice every half hour. During the day, the patient did fairly well, having some incisional pain, but able to ambulate adequately and to tolerate liquids well. Since the patient is doing well, we decided that the patient was ready to be discharged. The patient was given instructions to follow-up with me next week and to call my office for any fever over 101, persistent abdominal pain, nausea, vomiting, GERD, symptoms of DVT such as calf tenderness, or leg swelling, or pulmonary embolism such as chest pain or shortness of breath. The patient was also instructed to drink 40-60 ounces of liquids per day using the 1-ounce cups. The patient had been given prescriptions for Tylenol for pain, Zofran prn for nausea, and pantoprazole and carafate previously. The patient was encouraged to ambulate and use the incentive spirometer. The patient was allowed to shower, but no baths, and encouraged to stay active at home. All of these instructions were given to the patient personally. All questions were answered and the patient understood all instructions, the instructions were also given to the patient in print. PTSD, an Time Spent with Patient Time attestation: Total time spent providing and/or coordinating discharge services: Discharge coordination time: Less than 30 minutes Quality: Safe Use of Opioids Does Pt have an Active Cancer Diagnosis on the Problem List?: No Quality: Stroke Does the patient have a stroke diagnosis?: No Physical Exam Vital Signs: Vital Signs: Last Vital Signs Temp 97.6 F 04/19/22 13:15 Pulse 90 04/19/22 13:20 Resp 18 04/19/22 13:20 BP 138/77 04/19/22 13:20 Pulse Ox 96 04/19/22 13:20 O2 Del Method 04/19/22 13:20 O2 Flow Rate 8 04/19/22 13:20 BMI result Body Mass Index 37.5 DS: Data Data Completed and Pending Pending studies at discharge: Pending at discharge 04/19/22 12:42 Surgical [PTH] Routine Labs on day of discharge: Laboratory Results - last 24 hr 04/19/22 04/19/22 08:15 08:38 POC Glucose 170 H Urine Test NEGATIVE Discharge Plan Discharge Anticipated Discharge Date/Time: 04/20/22 10:19 Patient Disposition: Home, Self-Care Discharge Diagnosis: s/p sleeve gastrectomy Referrals: Stevie Bhatti MD [Primary Care Provider] - 1 Week Discharge Medications: Continued Latuda 40 mg tablet 1 tab PO BEDTIME hydroxyzine HCl 50 mg tablet 50 mg PO BEDTIME doxepin 25 mg capsule 25 mg PO BEDTIME paroxetine HCl 10 mg tablet 30 mg PO DAILY lamotrigine [Lamictal] 200 mg tablet 200 mg PO BID clonazepam 2 mg tablet 2 mg PO BID Rx Instructions: administer 30 minutes before bedtime pantoprazole 40 mg tablet,delayed release (DR/EC) 40 mg PO DAILY Qty: 30 2RF sucralfate 100 mg/mL suspension 10 ml PO BID Qty: 400 2RF ondansetron HCl 4 mg tablet 4 mg PO Q12H Qty: 20 0RF Held Trulicity 1.5 mg/0.5 mL pen injector 1.5 mg subcut QWEEK Hold Instructions: Discuss whether to restart with Dr Isidro Murphy cholecalciferol (vitamin D3) 125 mcg (5,000 unit) capsule 125 mcg PO DAILY Qty: 30 3RF cyanocobalamin (vitamin B-12) 500 mcg tablet 500 mcg PO DAILY Qty: 30 2RF thiamine HCl (vitamin B1) 100 mg tablet 100 mg PO DAILY Qty: 30 3RF metformin 500 mg tablet 1,000 mg PO BID glipizide 10 mg tablet 10 mg PO DAILY zinc gluconate 10 mg lozenge 10 mg PO DAILY Qty: 100 0RF pioglitazone 30 mg tablet 30 mg PO DAILY Discharge Orders: Discharge Order (Routine); Ordered 04/20/22 Ordered By: Harrison Melo Activity on Discharge: No heavy lifting Stand Alone Forms: Patient Portal Discharge page Care Plan Goals: weight loss Health Concerns: morbid obesity Plan of Treatment: No tub baths, sex or returning to work until discussed at first post op appointment. No exercise, alcohol, tobacco or illegal drug use. Continue to use incentive spirometer hourly while awake. Walk in home for 5- 10 minutes every 2 hours during the first week. Continue phase 1 diet today and start phase 2 diet tomorrow morning. Follow all instructions in the bariatric handbook and call with any questions. 1. Please call your doctor or come back to the emergency room should any new symptoms arise. 2. You will receive a courtesy call from [facility] 24-48 hours after discharge. 3. Activity: abstain from alcohol, practice limited stair climbing, no bending, no driving, no exercise, no illicit substances, no lifting, no sex, no tub bath, no work. 4. Diet: continue as discussed with bariatric team.. 5. Dressing Change/Wound Care: Do not change or remove surgical dressings unless they are wet or soiled. 6. Call your doctor if: - Your temperature exceeds 101.5 F - You experience excessive pain or swelling - You have an unexpected reaction to medication - You have excessive bleeding - You experience continued vomiting/nausea - Your incision begins to separate - Your incision shows signs of infection such as increased redness, swelling, excessive pain, heat, or drainage (light blood or clear fluid is normal) 7. General instructions: No lifting greater than 5 lbs for the next 4 weeks[address] driving within 24 hours of taking narcotic pain medications. If you do not move your bowels in the next 2 days, please take milk of magnesia over the counter. Please follow the post op diet and do not advance your diet until you are seen in the office in about 2 weeks. Please walk around your home every hour or two to prevent blood clots from forming in your legs. You do not need to wake from sleeping to walk. Please sleep in a bed or couch to prevent kinking at the hips and knees. Please take your incentive spirometer (your lung circus performer) home with you and use it for the next few days to prevent pneumonias. You may shower, no hot tubs, baths or swimming pools. Please call the office with any questions or concerns such as increasing abdominal pain, fever, chills, shortness of breath, chest pain, leg pain or swelling, or redness or drainage from your incisions. Do not hesitate to contact the office with any questions at . The patient's medical history has been reviewed and they are considered low risk for post op DVT and therefore DVT prophylaxis is not considered necessary. Travel after surgery was reviewed. The patient has not disclosed any travel plans during the first 30 days after surgery and they have been advised that within the first 30 days after surgery any bus, plane, train or car travel over 2 hours in duration is contraindicated due to the possibility of developing blood clots from immobility. Any travel, needs to include periods of ambulation of 10 minutes in duration every 2 hours. The patient was instructed to discuss any plans for travel during this period with their bariatric surgeon. Assessment: stable post op sleeve gastrectomy Discharge Date/Time: 04/20/22 09:51
[2022-04-19] MEDS: Famotidine/PF 20 MG/2 ML VIAL IVPUSH ×2 (13:35→20:25)
[2022-04-19] MEDS: ondansetron HCL 4 MG/2 ML VIAL IVPUSH ×2 (13:59→19:27)
[2022-04-19 14:14] LABS: Anion Gap 12 (12-20); Blood Urea Nitrogen 6 mg/dL (9-16); Calcium 8.6 mg/dL (8.4-10.2); Carbon Dioxide 24 mmol/L (22-29); Chloride 109 mmol/L (96-108); Estimated Glomerular Filt Rate > 60; Glucose Random 203 mg/dL (60-115); Potassium 4.4 mmol/L (3.3-5.1); Sodium 141 mmol/L (135-145)
[2022-04-19] MEDS: Metoclopramide HCl 10 MG/2 ML VIAL IVPUSH (14:14)
[2022-04-19 14:19] LABS: Hematocrit 45.5 % (37.0-47.0); Hemoglobin 15.4 g/dl (12.0-16.0)
[2022-04-19] MEDS: Lactated Ringers 1,000 ML 100 ML IVCONT ×3 (14:25→23:38)
[2022-04-19 17:17] LABS: Glucose, Whole Blood 223 mg/dL (60-115)
[2022-04-19] MEDS: 0.9 % Sodium Chloride Flush 3 ML SYRINGE IVFLUSH ×2 (17:46→19:27)
[2022-04-19] MEDS: Acetaminophen 1,000 MG/100 ML PIGGYBACK 400 MG IV (17:46)
[2022-04-19 19:46] LABS: Glucose, Whole Blood 223 mg/dL (60-115)
[2022-04-19] MEDS: clonazePAM 1 MG TABLET 2 MG PO (20:25)
[2022-04-19] MEDS: Insulin Lispro 100 UNIT/ML 3 ML VIAL SUBCUT (20:25)
[2022-04-19] MEDS: lamoTRIgine 100 MG TABLET 200 MG PO (20:25)
[2022-04-19] MEDS: Doxepin HCl 25 MG CAPSULE PO (20:25)
[2022-04-19] MEDS: Lurasidone HCl 40 MG TABLET PO (20:25)
[2022-04-19] MEDS: Acetaminophen 1,000 MG/100 ML PIGGYBACK 16.67 MG IV (23:38)
[2022-04-19 23:54] LABS: Glucose, Whole Blood 194 mg/dL (60-115)
[2022-04-20] VITALS: BP 128/69; PULSE 89; RESP 17; TEMP 36.9; O2SAT 96
[2022-04-20] MEDS: Insulin Lispro 100 UNIT/ML 3 ML VIAL SUBCUT ×2 (00:05→03:55)
[2022-04-20 03:34] LABS: Glucose, Whole Blood 153 mg/dL (60-115)
[2022-04-20] MEDS: ondansetron HCL 4 MG/2 ML VIAL IVPUSH (03:55)
[2022-04-20 04:00] VITALS: BP 129/76; PULSE 78; RESP 17; TEMP 36.6; O2SAT 98
[2022-04-20] MEDS: Acetaminophen 1,000 MG/100 ML PIGGYBACK 16.67 MG IV (05:29)
[2022-04-20 05:37] LABS: MANUAL DIFF FLAG NO
[2022-04-20 05:40] LABS: Basophils Percent Auto 0.2 % (0-2); Hematocrit 42.7 % (37.0-47.0); Hemoglobin 14.6 g/dl (12.0-16.0); Imm Gran Abs Auto 0.08 X10*3/uL (0.00-0.03); Imm Gran Pct Auto 0.6 % (0.0-0.4); Lymphocytes Percent Auto 13.7 % (20-40); Mean Corpuscular HGB Conc 34.2 g/dl (31.0-35.0); Mean Corpuscular Hemoglobin 32.5 pg (27.0-33.0); Mean Corpuscular Volume 95.1 fL (80.0-98.0); Mean Platelet Volume 9.5 fL (9.4-12.3); Monocytes Absolute Auto 0.8 X10*3/uL (0.1-1.2); Monocytes Percent Auto 5.7 % (2-11); Neutrophils Absolute Auto 11.5 x10*3/uL (2.0-8.3); Neutrophils Percent Auto 79.8 % (45-73); Platelet Count 325 X10*3/uL (160-400); Red Blood Count 4.49 X10*6/uL (4.20-5.50); Red Cell Distribution Width 12.4 % (11.0-16.0); White Blood Count 14.4 X10*3/uL (4.8-10.8)
[2022-04-20 06:01] LABS: Anion Gap 13 (12-20); Blood Urea Nitrogen 6 mg/dL (9-16); Calcium 8.9 mg/dL (8.4-10.2); Carbon Dioxide 22 mmol/L (22-29); Chloride 109 mmol/L (96-108); Creatinine Clr Calc Pharmacy 112.6; Estimated Glomerular Filt Rate > 60; Glucose Random 137 mg/dL (60-115); Potassium 4.2 mmol/L (3.3-5.1); Sodium 140 mmol/L (135-145)
[2022-04-20] MEDS: lamoTRIgine 100 MG TABLET 200 MG PO (07:16)
[2022-04-20] MEDS: PARoxetine HCL 30 MG TABLET PO (07:16)
[2022-04-20] MEDS: Famotidine/PF 20 MG/2 ML VIAL IVPUSH (07:16)
[2022-04-20] MEDS: clonazePAM 1 MG TABLET 2 MG PO (07:16)
--- NOTE | 2022-04-20 07:27 | MHC.CM.PN ---
PATIENT LIVES WITH HER 3 CHILDREN. SHE IS COVID VAX X 2 NO DME OR VNA SERVICES. SHE HAS TRANSPORT HOME AND HOPES TO BE DC BY 10:00. IF NOT, SHE MAY NEED TRANSPORT ASSIST. HCP NOT ON FILE AND WAS MAILED TO PATIENT'S HOME. PLAN IS NO NEED FOR SERVICES.
[2022-04-20 07:29] VITALS: BP 131/73; PULSE 84; RESP 18; TEMP 36.5; O2SAT 94
[2022-04-20 07:37] LABS: Glucose, Whole Blood 133 mg/dL (60-115)
--- NOTE | 2022-04-20 16:12 | HO.POSTANES ---
Post Anesthesia Evaluation Post Anesthesia Evaluation Vital Signs: Vital Signs Temp Pulse Resp BP Pulse Ox O2 Del Method 04/20/22 07:29 97.7 F 84 18 131/73 94 Room Air Anesthesia: General Endotracheal-GETA Mental Status: Awake Pain Control: Satisfactory Nausea/Vomiting: None Hydration: Adequate Anesthesia-Related Issues: No Anes. Related Issues
== END 2022-04-20 09:51 | disposition home or self-care (01) | DRG 403 ==
LOC: HO.SSSA 13:23 → HO.S3 13:26
PROVIDERS: Nurse Practitioner; Physician Assistant; Physician Assistant Surgical; Admitting Provider Surgery; PCP Internal Medicine Medical Oncology; Visit Provider Surgery
PROC: 0DB64Z3 Excision of Stomach, Percutaneous Endoscopic Approach, Vertical (ICD-10-PCS; CPT 43845; principal; 2022-04-19 10:10)
DX: E66.01 Morbid (severe) obesity due to excess calories (principal); K74.00 Hepatic fibrosis, unspecified; R16.0 Hepatomegaly, not elsewhere classified; F17.210 Nicotine dependence, cigarettes, uncomplicated; K76.0 Fatty (change of) liver, not elsewhere classified; F32.A Depression, unspecified; F41.9 Anxiety disorder, unspecified; Z68.37 Body mass index [BMI] 37.0-37.9, adult; K66.0 Peritoneal adhesions (postprocedural) (postinfection); M54.9 Dorsalgia, unspecified; K21.9 Gastro-esophageal reflux disease without esophagitis; G47.00 Insomnia, unspecified; K44.9 Diaphragmatic hernia without obstruction or gangrene; Z20.822 Contact with and (suspected) exposure to COVID-19; Z71.6 Tobacco abuse counseling; Z88.0 Allergy status to penicillin; Z88.2 Allergy status to sulfonamides; Z79.899 Other long term (current) drug therapy
CPT/HCPCS: 36415; 80048; 81025; 82947; 85014; 85018; 85025; 86850; 86900; 86901; 87635; 88305; 88307; 88342; A4649; C9088; J0131; J1100; J1170; J1956; J2250; J2405; J2550; J2765; J2795; J3010

== ENCOUNTER 2022-04-21 10:39 | Emergency (ER) | payer OTHER, SELFPAY ==
[2022-04-21 11:30] VITALS: BP 130/80; PULSE 86; RESP 18; TEMP 36.7; O2SAT 99; BMI 36.6
--- NOTE | 2022-04-21 11:31 | ED_ITS ---
HPI - Back Pain/Injury General Chief Complaint: Back Pain/Injury Stated Complaint: BACK PAIN DOWN LEG,NO INJURY PER EMS Time Seen by Provider: 04/21/22 11:36 Source: patient Mode of arrival: ambulatory History of Present Illness HPI Narrative: 41-year-old female with history of anxiety, insomnia, diabetes, obesity s/p laparoscopic sleeve gastrectomy on 04/19 presenting to the ED complaining of right-sided low back pain radiating down right lower extremity since this morning. Reports described as tingling. Call PCP yesterday who prescribed tramadol without relief. Denies any injury, trauma, fall, fever, abdominal pain, nausea/vomiting, urinary incontinence retention, hematuria/dysuria MD elicited complaint: back pain Related Data Home Medications Medication Instructions Recorded Confirmed doxepin 25 mg capsule 25 mg PO BEDTIME 02/01/22 04/19/22 hydroxyzine HCl 50 mg tablet 50 mg PO BEDTIME 02/01/22 04/13/22 paroxetine HCl 10 mg tablet 30 mg PO DAILY 02/01/22 04/13/22 clonazepam 2 mg tablet 2 mg PO BID 02/28/22 04/13/22 dulaglutide 1.5 mg/0.5 mL 1.5 mg subcut QWEEK 02/28/22 04/13/22 subcutaneous pen injector (Trulicity) lamotrigine 200 mg tablet 200 mg PO BID 02/28/22 04/13/22 (Lamictal) lurasidone 40 mg tablet (Latuda) 1 tab PO BEDTIME 04/19/22 04/19/22 Previous Rx's Medication Instructions Recorded ondansetron HCl 4 mg tablet 4 mg PO Q12H nausea and vomiting 04/11/22 #20 tabs pantoprazole 40 mg tablet,delayed 40 mg PO DAILY #30 tabs 04/11/22 release sucralfate 100 mg/mL oral 10 ml PO BID #400 mL 04/11/22 suspension acetaminophen 500 mg tablet 500 mg PO Q6H PRN fever or pain 04/21/22 (Tylenol Extra Strength) #14 tabs cyclobenzaprine 5 mg tablet 5 mg PO Q8H PRN pain (scale score 04/21/22 7-10) 5 days #14 tabs lidocaine 5 % topical patch 1 patch topical DAILY PRN pain #30 04/21/22 (Lidoderm) ea prednisone 20 mg tablet 40 mg PO DAILY 5 days #10 tabs 04/21/22 Allergies Allergy/AdvReac Type Severity Reaction Status Date / Time amoxicillin [Amoxicillin] Allergy Unknown HIVES Verified 04/19/22 08:15 Penicillins Allergy Unknown HIVES Verified 04/19/22 08:15 Sulfa (Sulfonamide Allergy Unknown hives Verified 04/19/22 08:15 Antibiotics) sulfamethoxazole Allergy Unknown HIVES Verified 04/19/22 08:15 [From Bactrim] trimethoprim [From Bactrim] Allergy Unknown HIVES Verified 04/19/22 08:15 Review of Systems Review of Systems: Constitutional: No Fever, No Chills ENT/Mouth: No Ear Pain, No Nasal Congestion, No Sinus Pain, No Hoarseness, No sore throat, No Rhinorrhea, No Swallowing Difficulty Cardiovascular: No Chest Pain, No SOB Respiratory: No Cough, No Sputum, No Wheezing Gastrointestinal: No Nausea, No Vomiting, No Diarrhea, No Constipation, No Abdominal pain Genitourinary: No Dysuria, No Urinary Frequency, No Hematuria, No Urinary Incontinence/retention, No Urgency, No Flank Pain Musculoskeletal: + joint pain, No Myalgias, No Joint Swelling Skin: No Skin Lesions, No rash Neuro: No Weakness, No Numbness, + Paresthesias Yes all other systems are reviewed and are negative Constitutional: Constitutional: Reports as per [facility] Past Medical History Attestation statement: The following information was validated with the patient. Medical History Anxiety Back pain History of seizure Hx of bronchitis Insomnia Non-insulin dependent type 2 diabetes mellitus Surgical History History of Hx of hernia repair Hx of tonsillectomy Family History Family History Mother Arthritis Father No problems noted. Sister No problems noted. Brother No problems noted. Daughter No problems noted. Son No problems noted. Social History Social History Household Members: Family and Children Housing: Apartment Are you a primary neonatal intensive care unit nurse to a significant other at home: No Do you presently have visiting nurse or other home services: No Alcohol intake: never Patient Tobacco Use Status: Current everyday Tobacco user Tobacco use type: Cigarette Cigarette Packs Per Day: 0.5 Cigarettes Per Day: 10.0 Years Smoked: 20 e-Cigarette/Vaping Use: Currently Using Advance Directives: No service: No Current occupational status: disabled Physical Exam Vital Signs: Vital Signs: Last Vital Signs Temp 98.0 F 04/21/22 11:30 Pulse 86 04/21/22 11:30 Resp 18 04/21/22 11:30 BP 130/80 04/21/22 11:30 Pulse Ox 99 04/21/22 11:30 O2 Del Method 04/21/22 11:30 BMI result Body Mass Index 36.6 Const: General: cooperative, healthy appearing and no acute distress Orientation/consciousness: patient oriented x3 Limitations: no limitations HEENT: Head: Yes normal to inspection and Yes atraumatic Ears: hearing grossly normal bilaterally General nose exam: Normal external nose present Face and sinus: Yes normal facial exam Eyes: General: appearance normal, both eyes and all related structures EOM: EOMs intact bilaterally Neck: Neck: Yes normal visual inspection and Yes no meningeal signs Resp: Effort & Inspection: normal respiratory effort and no respiratory distress Cardio: Rate: regular rate Heart sounds: S1 normal heart sound present and S2 normal heart sound present GI: Other: Multiple surgical scars noted with overlying dressings. Abdomen is soft and nontender Inspection: Yes normal to inspection Palpation (GI): Soft to palpation, nontender, no guarding and not rigid : General: Yes no CVA tenderness Back/Spine/Pelvis: Other: No midline thoracic/lumbar spinous tenderness/step-off or deformity. + right- sided lumbar MSK tenderness Back: no CVA tenderness Skin: Rashes: no rashes Wounds: no wounds Neuro: Other: Strength intact throughout. No saddle anesthesia. Sensation intact to light touch. Neurovascular intact distally General: patient oriented x3, tone normal and no meningeal signs Gait exam (Neuro): Normal gait present Extrem: General: Yes normal to inspection MDM - Back Pain/Injury MDM Narrative Medical decision making narrative: 41-year-old female with history of anxiety, insomnia, diabetes, obesity s/p laparoscopic sleeve gastrectomy on 04/19 presenting to the ED complaining of right-sided low back pain radiating down right lower extremity since this morning. On exam VSS, NAD, + right-sided lower lumbar MSK tenderness noted, no red flag symptoms or midline spinous tenderness. Concern for MSK pain/sciatica. Low concern for cauda equina, cord compression, or fracture. Low suspicion for pyelo Plan: Pain control, PCP follow Differential Diagnosis Differential diagnosis: Likely lumbar radiculopathy, sciatica and strain of lumbar region Medical Records Attestation: I reviewed the patient's medical records. Lab Data Attestation: I reviewed the patient's lab results. Discharge Plan Discharge Clinical Impression: Sciatic pain Patient Disposition: Home, Self-Care Instructions: Sciatica (ED) Additional Instructions: Your pain is likely musculoskeletal Flexeril is a muscle relaxer, take at night as it makes you drowsy, do not drive, drink alcohol, or operate machinery while taking it Lidoderm patches are numbing patches, apply to painful area Prednisone as a steroid which will help with inflammation/pain In addition take Tylenol at home If symptoms persist or worsen, pain becomes unbearable, you developed urinary retention or incontinence, or weakness return to the ED Prescriptions: New prednisone 20 mg tablet 40 mg PO DAILY 5 Days Qty: 10 0RF acetaminophen [Tylenol Extra Strength] 500 mg tablet 500 mg PO Q6H PRN (Reason: fever or pain) Qty: 14 0RF lidocaine [Lidoderm] 5 % adhesive patch,medicated 1 patch topical DAILY MDD remove after 12 hours PRN (Reason: pain) Qty: 30 0RF Rx Instructions: leave on most painful area for up to 12 hrs cyclobenzaprine 5 mg tablet 5 mg PO Q8H PRN (Reason: pain (scale score 7-10)) 5 Days Qty: 14 0RF No Action Latuda 40 mg tablet 1 tab PO BEDTIME hydroxyzine HCl 50 mg tablet 50 mg PO BEDTIME doxepin 25 mg capsule 25 mg PO BEDTIME paroxetine HCl 10 mg tablet 30 mg PO DAILY Trulicity 1.5 mg/0.5 mL pen injector 1.5 mg subcut QWEEK Hold Instructions: Discuss whether to restart with Dr Felix lamotrigine [Lamictal] 200 mg tablet 200 mg PO BID clonazepam 2 mg tablet 2 mg PO BID Rx Instructions: administer 30 minutes before bedtime pantoprazole 40 mg tablet,delayed release (DR/EC) 40 mg PO DAILY Qty: 30 2RF sucralfate 100 mg/mL suspension 10 ml PO BID Qty: 400 2RF ondansetron HCl 4 mg tablet 4 mg PO Q12H Qty: 20 0RF Referrals: ED Physician,Generic [Emergency Provider] -
== END 2022-04-21 11:41 | disposition home or self-care (01) ==
PROVIDERS: Emergency Provider Emergency Medicine Emergency Medical Services; PCP Internal Medicine Medical Oncology
DX: M54.41 Lumbago with sciatica, right side (principal); F17.210 Nicotine dependence, cigarettes, uncomplicated; Z71.6 Tobacco abuse counseling; Z79.899 Other long term (current) drug therapy
CPT/HCPCS: 99282; 99283

== ENCOUNTER 2022-05-18 10:19 | Emergency (ER) | payer OTHER, SELFPAY ==
--- NOTE | 2022-05-18 10:31 | ED_ITS ---
HPI - General Adult General Chief complaint: Extremity Injury, Lower Stated complaint: R leg pain going up lower back, dif walk per EMS Time Seen by Provider: 05/18/22 10:30 Source: patient and EMS Mode of arrival: EMS Limitations: no limitations History of Present Illness HPI narrative: Patient is a 41 year old assigned female at with a history of PTSD, bipolar disorder, s/p gastric sleeve, presenting to the emergency department today with right sided back pain. Patient states that for the last month she has been having right sided back pain that radiates down her right leg. Patient denies any dizziness, lightheadedness, abdominal pain, nausea, vomiting, fever, chills, blurry vision, double vision, loss of vision, chest pain, difficulty breathing, shortness of breath, night sweats, pain with urination, increased urinary frequency, increased urinary urgency, blood in her urine or stool, syncope or a near syncopal episode, recent trauma or falls, bowel incontinence, bladder incontinence, bowel retention, bladder retention, or any other complaints at this time. Onset (ago): month(s) (1) Location: back Radiation: extremity Severity: mild Severity scale (1-10): 3 Quality: aching and constant Pain Consistency: constant Relieving factors: none Exacerbating factors: none Associated symptoms: denies other symptoms Treatments prior to arrival: none Related Data Home Medications Medication Instructions Recorded Confirmed doxepin 25 mg capsule 25 mg PO BEDTIME 02/01/22 05/06/22 paroxetine HCl 10 mg tablet 30 mg PO DAILY 02/01/22 05/06/22 clonazepam 2 mg tablet 2 mg PO BID 02/28/22 05/06/22 dulaglutide 1.5 mg/0.5 mL 1.5 mg subcut QWEEK 02/28/22 04/13/22 subcutaneous pen injector (Trulicity) lamotrigine 200 mg tablet 200 mg PO BID 02/28/22 05/06/22 (Lamictal) lurasidone 40 mg tablet (Latuda) 1 tab PO BEDTIME 04/19/22 05/06/22 Previous Rx's Medication Instructions Recorded pantoprazole 40 mg tablet,delayed 40 mg PO DAILY #30 tabs 04/11/22 release sucralfate 100 mg/mL oral 10 ml PO BID #400 mL 04/11/22 suspension acetaminophen 500 mg tablet 500 mg PO Q6H PRN fever or pain 04/21/22 (Tylenol Extra Strength) #14 tabs cyclobenzaprine 5 mg tablet 5 mg PO Q8H PRN pain (scale score 04/21/22 7-10) 5 days #14 tabs cyclobenzaprine 5 mg tablet 5 mg PO TID PRN back pain 7 days 05/18/22 #21 tabs Allergies Allergy/AdvReac Type Severity Reaction Status Date / Time amoxicillin [Amoxicillin] Allergy Unknown HIVES Verified 05/06/22 10:35 Penicillins Allergy Unknown HIVES Verified 05/06/22 10:35 Sulfa (Sulfonamide Allergy Unknown hives Verified 05/06/22 10:35 Antibiotics) sulfamethoxazole Allergy Unknown HIVES Verified 05/06/22 10:35 [From Bactrim] trimethoprim [From Bactrim] Allergy Unknown HIVES Verified 05/06/22 10:35 Review of Systems Constitutional: Constitutional: Reports no additional constitutional complai nts, Denies chills, Denies fever(s) and Denies night sweats Eyes: Eyes: Reports no additional eye complaints, Denies blurry vision, Denies change in vision, Denies diplopia, Denies eye discharge, Denies loss of vision and Denies eye pain ENT: Denies dizziness Cardiovascular: Cardiovascular: Reports no additional cardiovascular complaints, Denies chest pain, Denies lightheadedness, Denies Loss of Consciousness and Denies dyspnea Respiratory: Respiratory: Reports no additional respiratory complaints and Denies dyspnea Gastrointestinal: Gastrointestinal: Reports no additional gastrointestinal complaints, Denies abdominal pain, Denies melena, Denies hematochezia, Denies change in bowel habits and Denies change in stool character Genitourinary: Genitourinary: Denies hematuria, Denies urinary frequency, Denies dysuria, Denies urinary incontinence, Denies urinary hesitancy and Denies urinary urgency Musculoskeletal: Musculoskeletal: Reports no additional musculoskeletal complaints, Reports back pain, Denies numbness and Denies tingling Neurologic: Denies dizziness, Denies loss of vision, Denies numbness and Denies tingling Psychiatric: Psychiatric: Reports no additional psychiatric complaints Endocrine: Endocrine: Reports no additional endocrine complaints Hematologic/Lymphatic: Hematologic/Lymphatic: Reports no additional hematologic/lymphatic complaints Allergic/Immunologic: Allergic/Immunologic: Reports no additional allergic/immunologic complaints PMFSH Past Medical History Attestation statement: The following information was validated with the patient. Source: old records reviewed and nursing notes reviewed Medical History Anxiety Back pain BMI 37.0-37.9, adult BMI 38.0-38.9,adult Diabetes Elevated liver enzymes History of seizure Hx of bronchitis Hyperlipidemia Insomnia Non-insulin dependent type 2 diabetes mellitus Obesity Zinc deficiency Surgical History History of Hx of hernia repair Hx of tonsillectomy Family History Family History Mother Arthritis Father No problems noted. Sister No problems noted. Brother No problems noted. Daughter No problems noted. Son No problems noted. Social History Social History Household Members: Family and Children Housing: Apartment Are you a primary health care attorney to a significant other at home: No Do you presently have visiting nurse or other home services: No Alcohol intake: never Patient Tobacco Use Status: Current everyday Tobacco user Tobacco use type: Cigarette Cigarette Packs Per Day: 0.5 Cigarettes Per Day: 10.0 Years Smoked: 20 e-Cigarette/Vaping Use: Currently Using Advance Directives: No Advance Directives Information Provided: No service: No Current occupational status: disabled Physical Exam ED Vital Signs: Vital Signs - 24 hr 05/18/22 10:49 Temperature 98.5 F Pulse Rate 64 Respiratory Rate 16 Blood Pressure 146/93 H Pulse Oximetry 98 Oxygen Delivery Method Room Air BMI result Body Mass Index 33.6 Const General: cooperative, no acute distress, alert and awake Nutritional Appearance: well nourished Orientation/consciousness: patient oriented x3 Limitations: no limitations HENMT Head: Yes normal to inspection and Yes atraumatic Ears: hearing grossly normal bilaterally and external ears normal General nose exam: Normal external nose present, no nasal discharge noted and no epistaxis Face and sinus: Yes normal facial exam, No abrasion and No laceration Mouth: Normal oral and palatal mucosa present, no drooling and no muffled voice Eyes General: appearance normal, both eyes and all related structures Periorbital: periorbital findings normal Eyelids: Yes eyelids normal Conjunctivae: conjunctivae normal Pupils: Equal, round and reactive pupils present EOM: EOMs intact bilaterally Neck Neck: Yes normal visual inspection, Yes full ROM and Yes no lymphadenopathy Chest Chest palpation & inspection: normal inspection of the chest Resp Effort & Inspection: normal respiratory effort and able to speak in complete sentences Auscultation: clear to auscultation bilaterally Cardio Rate: regular rate Rhythm: regular rhythm GI Inspection: Yes normal to inspection General: Yes no CVA tenderness Back/Spine/Pelvis Back: no CVA tenderness Cervical Spine: normal cervical lordosis and cervical ROM normal Thoracic/Lumbar Spine: thoracic and lumbar spine normal to inspection and thoraco-lumbar ROM normal Pelvis: no pain with anterior-posterior compression Neuro General: patient oriented x3 and moves all extremities Cranial nerves: Yes Equal, round and reactive pupils present Cognition (Neuro): normal cognition Motor exam (neuro): 5/5 motor strength present throughout Sensory Exam: Normal double simultaneous stimulation for sensation Coordination: [id number] test normal Extrem General: Yes normal to inspection, Yes full ROM and Yes capillary refill normal Psych Appearance: grossly normal Mental Status: mental status grossly normal Affect: normal affect Attitude: cooperative Thought process: Normal thought process present Thought content: Normal thought content present Insight: Good insight present (Psych) Medications Administered Discontinued Medications Generic Name Dose Route Start Last Admin Trade Name Freq PRN Reason Stop Dose Admin Cyclobenzaprine HCl 5 mg 05/18/22 10:34 05/18/22 10:44 Cyclobenzaprine Hcl 5 Mg Tablet PO 05/18/22 10:35 5 mg ONCE ONE Administration Ketorolac Tromethamine 15 mg 05/18/22 10:34 05/18/22 10:45 Ketorolac Tromethamine 15 Mg/Ml Vial IM 05/18/22 10:35 15 mg ONCE ONE Administration Lorazepam 2 mg 05/18/22 10:34 05/18/22 10:44 Lorazepam 1 Mg Tablet PO 05/18/22 10:35 2 mg ONCE ONE Administration Medical Decision Making Medical Decision Making [facility] Narrative: Patient is a 41 year old assigned female at with a history of PTSD, bipolar disorder, s/p gastric sleeve, presenting to the emergency department today with right sided low back pain. Patient's physical exam was unremarkable. I explained my physical exam findings to the patient. I answered all questions asked by the patient. Patient received IM Toradol, PO Flexeril and PO Ativan which she stated helped her symptoms significantly. I stressed the importance of the patient taking her medication as prescribed. I stressed the importance of the patient following up with her primary care provider. I stressed the importance of the patient returning to the emergency department immediately if her symptoms were to worsen or if she were to develop any dizziness, shortness of breath, difficulty breathing, chest pain, blurry vision, loss of vision, nausea, vomiting, abdominal pain, fever, chills, back pain, or any other complaints. Patient verbalized agreement and understanding with this treatment plan and discharge. Discharge Plan Discharge Clinical Impression: Sciatica Patient Disposition: Home, Self-Care Instructions: Sciatica (ED) Additional Instructions: Follow up with your primary care provider and a av specialist. Return to the emergency department immediately if your symptoms worsen or if you develop any dizziness, shortness of breath, difficulty breathing, chest pain, blurry vision, loss of vision, nausea, vomiting, abdominal pain, fever, chills, back pain, or any other complaints. Prescriptions: New cyclobenzaprine 5 mg tablet 5 mg PO TID PRN (Reason: back pain) 7 Days Qty: 21 0RF No Action Latuda 40 mg tablet 1 tab PO BEDTIME acetaminophen [Tylenol Extra Strength] 500 mg tablet 500 mg PO Q6H PRN (Reason: fever or pain) Qty: 14 0RF cyclobenzaprine 5 mg tablet 5 mg PO Q8H PRN (Reason: pain (scale score 7-10)) 5 Days Qty: 14 0RF doxepin 25 mg capsule 25 mg PO BEDTIME paroxetine HCl 10 mg tablet 30 mg PO DAILY Trulicity 1.5 mg/0.5 mL pen injector 1.5 mg subcut QWEEK Hold Instructions: Discuss whether to restart with Dr Saleh. lamotrigine [Lamictal] 200 mg tablet 200 mg PO BID clonazepam 2 mg tablet 2 mg PO BID Rx Instructions: administer 30 minutes before bedtime pantoprazole 40 mg tablet,delayed release (DR/EC) 40 mg PO DAILY Qty: 30 2RF sucralfate 100 mg/mL suspension 10 ml PO BID Qty: 400 2RF Referrals: [facility] [place] Family Medicine [Provider Group] (Call to establish and follow up with a primary care provider. If you already have a primary care provider, please foll ow up with them. ) [facility] [place] [facility] [Provider Group] (Call to establish and follow up with a primary care provider. If you already have a primary care provider, please follow up with them. ) [facility] [Provider Group] (Call to establish and follow up with a primary care provider. If you already have a primary care provider, please follow up with them. ) [facility] [Provider Group] (Call to follow up and establish with a av specialist. ) Stand Alone Forms: Work/School Release Interventions: ED Discharge Assessment Last Done: 05/18/22 11:24 Discharge Date/Time: 05/18/22 11:26 Print Language: Omani
[2022-05-18] MEDS: LORazepam 1 MG TABLET 2 MG PO (10:44)
[2022-05-18] MEDS: Cyclobenzaprine HCl 5 MG TABLET PO (10:44)
[2022-05-18] MEDS: Ketorolac Tromethamine 15 MG/ML VIAL IM (10:45)
[2022-05-18 10:49] VITALS: BP 146/93; BP 148/92; PULSE 64; PULSE 65; RESP 16; TEMP 36.9; O2SAT 98; BMI 33.6
== END 2022-05-18 11:26 | disposition home or self-care (01) ==
PROVIDERS: Emergency Provider Student in an Organized Health Care Education/Training Program; PCP Internal Medicine Medical Oncology
DX: M54.41 Lumbago with sciatica, right side (principal); E11.9 Type 2 diabetes mellitus without complications; E78.5 Hyperlipidemia, unspecified; F17.210 Nicotine dependence, cigarettes, uncomplicated; Z98.84 Bariatric surgery status; Z79.899 Other long term (current) drug therapy; Z79.85 Long-term (current) use of injectable non-insulin antidiabetic drugs
CPT/HCPCS: 96372; 99282; 99283; 99284; J1885

== ENCOUNTER → 2022-05-27 10:42 | Outpatient (BNVA) | payer OTHER, SELFPAY | PROVIDERS: Visit Provider Physician Assistant Surgical | DX: Z13.89 Encounter for screening for other disorder (principal) ==

== ENCOUNTER 2023-03-03 12:57 | Outpatient (REF) | payer OTHER, SELFPAY ==
--- NOTE | ~2023-03-03 | XR_ITS ---
EXAMINATION: XR LUMBOSACRAL SPINE WITH OBLIQUES CLINICAL INFORMATION: Right pain. COMPARISON: None available. TECHNIQUE: AP, both oblique, and lateral views of the lumbar spine. Lateral view of the lumbosacral junction. FINDINGS: Vertebral body heights and alignment are normal. The lower thoracic and lumbar disc spaces are well-maintained. No acute fracture or spondylolisthesis is seen. No spondylolysis defect is seen on the oblique views. There is mild anterior spondylosis of the L3-L5 upper endplates. The posterior elements are intact. The paravertebral soft tissues are unremarkable. There are left upper quadrant surgical clips. XR/XR lumbar spine 4V min IMPRESSION: 1. No acute fracture or spondylolisthesis is seen. There is no spondylolysis defect. 2. The lower thoracic and lumbar disc spaces are well-maintained. 3. There is mild anterior spondylosis of the L3-L5 upper endplates.
--- NOTE | ~2023-03-03 | XR_ITS ---
EXAMINATION: XR KNEE, LEFT CLINICAL INFORMATION: Acute pain. COMPARISON: Radiographs dated 10/14/2008. TECHNIQUE: AP, lateral, tunnel, and sunrise views of the left knee. FINDINGS: No fracture or joint effusion. Alignment is anatomic. Joint spaces are maintained. No abnormal soft tissue calcification. XR/XR knee LT 4V IMPRESSION: Normal left knee.
== END 2023-03-03 12:58 | disposition home or self-care (01) ==
LOC: HO.XRAY 12:57
PROVIDERS: PCP Internal Medicine Medical Oncology; Visit Provider Internal Medicine Medical Oncology
DX: M54.16 Radiculopathy, lumbar region (principal); M25.562 Pain in left knee
CPT/HCPCS: 72110; 73564

== ENCOUNTER 2023-07-27 12:52 | Outpatient (REF) | payer OTHER, SELFPAY ==
[2023-07-27 15:54] LABS: MANUAL DIFF FLAG NO
[2023-07-27 16:00] LABS: Basophils Percent Auto 0.4 % (0-2); Eosinophils Absolute Auto 0.3 X10*3/uL (0.0-0.4); Eosinophils Percent Auto 2.5 % (0-4); Hematocrit 44.4 % (37.0-47.0); Hemoglobin 15.1 g/dl (12.0-16.0); Imm Gran Abs Auto 0.05 X10*3/uL (0.00-0.03); Imm Gran Pct Auto 0.5 % (0.0-0.4); Lymphocytes Absolute Auto 3.9 X10*3/uL (1.2-4.9); Lymphocytes Percent Auto 36.1 % (20-40); Mean Corpuscular Hemoglobin 31.1 pg (27.0-33.0); Mean Corpuscular Volume 91.5 fL (80.0-98.0); Mean Platelet Volume 9.6 fL (9.4-12.3); Monocytes Absolute Auto 0.7 X10*3/uL (0.1-1.2); Monocytes Percent Auto 6.1 % (2-11); Neutrophils Absolute Auto 5.8 x10*3/uL (2.0-8.3); Neutrophils Percent Auto 54.4 % (45-73); Platelet Count 356 X10*3/uL (160-400); Red Blood Count 4.85 X10*6/uL (4.20-5.50); Red Cell Distribution Width 12.4 % (11.0-16.0); White Blood Count 10.7 X10*3/uL (4.8-10.8)
[2023-07-27 16:18] LABS: Alanine Aminotransferase 12 U/L (0-31); Alkaline Phosphatase 69 U/L (39-117); Anion Gap 12 (12-20); Aspartate Amino Transferase 11 U/L (5-31); Bilirubin Total 0.3 mg/dL (0.0-1.0); Blood Urea Nitrogen 7 mg/dL (9-16); Calcium 9.2 mg/dL (8.4-10.2); Carbon Dioxide 24 mmol/L (22-29); Chloride 108 mmol/L (96-108); Estimated Glomerular Filt Rate > 60; Glucose Random 154 mg/dL (60-115); Sodium 140 mmol/L (135-145); Total Protein 6.6 g/dL (6.5-8.0)
[2023-07-27 16:36] LABS: Ferritin 26 ng/mL (10-250)
[2023-07-27 16:40] LABS: Erythrocyte Sedimentation Rate 6 MM/HR (0-20)
== END 2023-07-27 12:53 | disposition home or self-care (01) ==
LOC: HO.HMGCLDS 12:52
PROVIDERS: PCP Internal Medicine Medical Oncology; Visit Provider Internal Medicine Medical Oncology
DX: R53.83 Other fatigue (principal)
CPT/HCPCS: 36415; 80053; 82728; 85025; 85652

== ENCOUNTER 2024-01-04 14:00 | Outpatient (AMB) | payer OTHER, SELFPAY ==
--- NOTE | 2024-01-04 12:29 | A.OFFVIS_ITS ---
VS Expanded 01/04/24 12:31 Height 5 ft 3 in Weight 195 lb 6 oz BMI 34.6 Body Fat % 29.5 Body Fat Mass 57.7 Fat Free Mass 138 Visceral Fat Rating 16 Body Water % 48.4 Body Water Mass 94.6 Muscle Mass/Score 129.8 Basal Metabolic Rate/Score 1,712 Intake Visit Reasons: (TV) PO LSG 04/19/22 Allergies amoxicillin [Amoxicillin] Allergy (Unknown, Verified 05/06/22 10:35) HIVES Penicillins Allergy (Unknown, Verified 05/06/22 10:35) HIVES Sulfa (Sulfonamide Antibiotics) Allergy (Unknown, Verified 05/06/22 10:35) hives sulfamethoxazole [From Bactrim] Allergy (Unknown, Verified 05/06/22 10:35) HIVES trimethoprim [From Bactrim] Allergy (Unknown, Verified 05/06/22 10:35) HIVES HPI Comments Details: This?a?41?yo female who is s/p LSG without hiatal hernia repair on?04/19/[address] Melo. Presents for 1 year 8 month post op visit. She has not been seen in the office since 05/27/2022. At that time, her weight was 190.4 lb with a BMI of 33.7. Despite multiple efforts to have her come into the office, she was never able to keep her appointments. She states that she had a set back b ecause she states she was embarrassed. She states she had gained a lot of weight to 213 pounds. Weight today is 195.6 pounds, with a BMI of 34.6.? There has been a 36.8 pound weight loss,(initial weight 232.4 pounds) since starting the program on 02/09/22 reflecting a 15.8% total body weight loss and a weight loss of 15.9 pounds since surgery (operative weight 211.5 pounds) reflecting a 7.5% TBWL since surgery.? No complaints of nausea, emesis, abdominal pain or reflux. Reports infrequent but normal bowel movements every 1-2 days. not taking MVI Still smoking 1/2 PPD, advised to quit Present meal plan includes: coffee w creamer cottage cheese 1/2 c sometimes skips Drinking 128 oz water, Exercise routine includes: walking outside, not tracking calories could join [facility] Medical History BMI 37.0-37.9, adult History of seizure Anxiety Hx of bronchitis BMI 38.0-38.9,adult Obesity Back pain Elevated liver enzymes Hyperlipidemia Insomnia Non-insulin dependent type 2 diabetes mellitus Zinc deficiency Diabetes Surgical History History of Hx of hernia repair Hx of tonsillectomy Family History Mother Arthritis Father No problems noted. Sister No problems noted. Brother No problems noted. Daughter No problems noted. Son No problems noted. Social History Household Members: Family and Children Housing: Apartment Are you a primary health care coordinator to a significant other at home: No Do you presently have visiting nurse or other home services: No Alcohol intake: never Patient Tobacco Use Status: Current everyday Tobacco user Tobacco use type: Cigarette Cigarette Packs Per Day: 0.5 Cigarettes Per Day: 10.0 Years Smoked: 20 e-Cigarette/Vaping Use: Currently Using service: No Current occupational status: disabled Telehealth Telehealth Telehealth Platform: Telephone Location of provider rendering services: practice address Location of patient: address on file Patient Identification confirmed using: Name, : Yes Telehealth method: voice only Patient verbally consented to treatment: Yes Patient verbally consented to billing insurance company: Yes Patient informed of any privacy concerns related to visit: Yes Minutes spent on Phone/Video with Pt.: 25 Assessment & Plan Assessment & Plan (1) S/P laparoscopic sleeve gastrectomy: Code(s): Z98.84 - Bariatric surgery status Category: Surgical Plan: Patient was lost to follow-up despite multiple attempts to contact her in the past. She will start a new meal plan: Using [employer] ready to drink shakes per her request: Half the container (6 oz (with 6 oz of coffee or unsweetened 0at milk in the morning 1 hole ready to drink shake mid day Meal at night with 7 forks of protein and 7 of vegetables. Patient was instructed to drink each shake slowly over 2 hour period. Patient states that she could join the gym, [employer], instructed to do so and start using the recumbent bike, tracking her calories burned, goal 300 per day. Check 1 year follow-up labs as she has not been seen in the office in a year and a half Return to clinic 1 month Orders: Orders Hemoglobin A1c Today E11.9 - Type 2 diabetes mellitus without complications, K74.00 - Hepatic fibrosis, unspecified, Z98.84 - Bariatric surgery status Complete Blood Count Auto Diff Today E11.9 - Type 2 diabetes mellitus without complications, K74.00 - Hepatic fibrosis, unspecified, Z98.84 - Bariatric surgery status Lipid Panel Today E11.9 - Type 2 diabetes mellitus without complications, K74.00 - Hepatic fibrosis, unspecified, Z98.84 - Bariatric surgery status IRON PROFILE Today E11.9 - Type 2 diabetes mellitus without complications, K74.00 - Hepatic fibrosis, unspecified, Z98.84 - Bariatric surgery status Zinc Today E11.9 - Type 2 diabetes mellitus without complications, K74.00 - Hepatic fibrosis, unspecified, Z98.84 - Bariatric surgery status C Reactive Protein Today E11.9 - Type 2 diabetes mellitus without co mplications, K74.00 - Hepatic fibrosis, unspecified, Z98.84 - Bariatric surgery status Vitamin A Today E11.9 - Type 2 diabetes mellitus without complications, K74.00 - Hepatic fibrosis, unspecified, Z98.84 - Bariatric surgery status Ferritin Today E11.9 - Type 2 diabetes mellitus without complications, K74.00 - Hepatic fibrosis, unspecified, Z98.84 - Bariatric surgery status Insulin Today E11.9 - Type 2 diabetes mellitus without complications, K74.00 - Hepatic fibrosis, unspecified, Z98.84 - Bariatric surgery status Vitamin B12 and Folate Today E11.9 - Type 2 diabetes mellitus without complications, K74.00 - Hepatic fibrosis, unspecified, Z98.84 - Bariatric surgery status Vitamin B1 Today E11.9 - Type 2 diabetes mellitus without complications, K74.00 - Hepatic fibrosis, unspecified, Z98.84 - Bariatric surgery status TSH reflex Free T4 Today E11.9 - Type 2 diabetes mellitus without complications, K74.00 - Hepatic fibrosis, unspecified, Z98.84 - Bariatric surgery status Vitamin D 25-OH Total Today E11.9 - Type 2 diabetes mellitus without complications, K74.00 - Hepatic fibrosis, unspecified, Z98.84 - Bariatric surgery status Basic Metabolic Panel Today E11.9 - Type 2 diabetes mellitus without complications, K74.00 - Hepatic fibrosis, unspecified, Z98.84 - Bariatric surgery status
[2024-01-04 12:31] VITALS: BMI 34.6
== END 2024-01-04 14:07 | disposition home or self-care (01) ==
LOC: HO.HBS 14:00
PROVIDERS: PCP Internal Medicine Medical Oncology; Visit Provider Physician Assistant Surgical
DX: E66.3 Overweight (principal); Z68.34 Body mass index [BMI] 34.0-34.9, adult; Z90.3 Acquired absence of stomach [part of]; Z98.84 Bariatric surgery status
CPT/HCPCS: 99214

== ENCOUNTER → 2024-01-04 14:00 | Outpatient (BNVA) | payer OTHER, SELFPAY | PROVIDERS: PCP Internal Medicine Medical Oncology; Visit Provider Physician Assistant Surgical | DX: Z98.84 Bariatric surgery status (principal); K74.00 Hepatic fibrosis, unspecified; E11.9 Type 2 diabetes mellitus without complications ==

== ENCOUNTER 2024-10-17 11:19 | Outpatient (REF) | payer OTHER, SELFPAY ==
--- NOTE | ~2024-10-17 | XR_ITS ---
EXAMINATION: XR ABDOMEN KUB CLINICAL INDICATION: ABDOMINAL PAIN COMPARISON: None available. TECHNIQUE: AP view of the abdomen. FINDINGS: The bowel gas pattern is normal with no evidence of ileus or obstruction. No unusual soft tissue calcifications are noted. There is hepatomegaly with craniocaudal dimension of 23 cm. There are surgical clips in the region of the stomach. The lung bases are clear. No focal bony abnormalities. XR/XR KUB IMPRESSION: 1. No acute abnormalities. 2. Hepatomegaly. Electronically signed by: Aidan Burleson MD 10/17/2024 12:17 PM EDT
[2024-10-17 11:30] LABS: MANUAL DIFF FLAG NO
[2024-10-17 11:56] LABS: Basophils Absolute Auto 0.1 X10*3/uL (0.0-0.2); Basophils Percent Auto 0.6 % (0-2); Eosinophils Absolute Auto 0.2 X10*3/uL (0.0-0.4); Eosinophils Percent Auto 1.6 % (0-4); Hematocrit 41.2 % (37.0-47.0); Hemoglobin 13.4 g/dl (12.0-16.0); Imm Gran Abs Auto 0.12 X10*3/uL (0.00-0.03); Lymphocytes Absolute Auto 3.1 X10*3/uL (1.2-4.9); Lymphocytes Percent Auto 26.3 % (20-40); Mean Corpuscular HGB Conc 32.5 g/dl (31.0-35.0); Mean Corpuscular Hemoglobin 28.4 pg (27.0-33.0); Mean Corpuscular Volume 87.3 fL (80.0-98.0); Mean Platelet Volume 9.6 fL (9.4-12.3); Monocytes Absolute Auto 0.6 X10*3/uL (0.1-1.2); Monocytes Percent Auto 4.7 % (2-11); Neutrophils Absolute Auto 7.8 x10*3/uL (2.0-8.3); Neutrophils Percent Auto 65.8 % (45-73); Platelet Count 384 X10*3/uL (160-400); Red Blood Count 4.72 X10*6/uL (4.20-5.50); Red Cell Distribution Width 16.1 % (11.0-16.0); White Blood Count 11.8 X10*3/uL (4.8-10.8)
[2024-10-17 12:00] LABS: Estimated Average Glucose 169 mg/dL; Hemoglobin A1C 206.3466 umol/L; Hemoglobin A1c % 7.5 % (<6.0); Total Hemoglobin (HGBA1C) 3502.9759 umol/L
[2024-10-17 12:32] LABS: Erythrocyte Sedimentation Rate 14 MM/HR (0-20)
[2024-10-17 12:44] LABS: Alanine Aminotransferase 25 U/L (0-31); Albumin Level 4.2 g/dL (3.5-5.0); Alkaline Phosphatase 60 U/L (39-117); Anion Gap 13 (12-20); Aspartate Amino Transferase 23 U/L (5-31); Bilirubin Total 0.3 mg/dL (0.0-1.0); Blood Urea Nitrogen 7 mg/dL (9-16); Calcium 9.4 mg/dL (8.4-10.2); Carbon Dioxide 23 mmol/L (22-29); Chloride 108 mmol/L (96-108); Estimated Glomerular Filt Rate > 60; Glucose Random 99 mg/dL (60-115); Potassium 3.9 mmol/L (3.3-5.1); Sodium 140 mmol/L (135-145); Total Protein 7.1 g/dL (6.5-8.0)
== END 2024-10-17 11:20 | disposition home or self-care (01) ==
LOC: HO.XRAY 11:19
PROVIDERS: PCP Internal Medicine Medical Oncology; Visit Provider Internal Medicine Medical Oncology
DX: R10.9 Unspecified abdominal pain (principal); E66.9 Obesity, unspecified; E11.9 Type 2 diabetes mellitus without complications; I10 Essential (primary) hypertension
CPT/HCPCS: 36415; 74018; 80053; 83036; 85025; 85652

== ENCOUNTER → 2024-10-17 11:42 | Outpatient (BNV) | payer OTHER, SELFPAY | PROVIDERS: PCP Internal Medicine Medical Oncology; Visit Provider Radiology Diagnostic Radiology | DX: R16.0 Hepatomegaly, not elsewhere classified (principal) | CPT/HCPCS: 74018 ==

== ENCOUNTER 2025-01-16 06:31 | Outpatient (REF) | payer OTHER, SELFPAY ==
[2025-01-16 10:08] LABS: Hematocrit 38.1 % (37.0-47.0); Hemoglobin 12.5 g/dl (12.0-16.0); Mean Corpuscular HGB Conc 32.8 g/dl (31.0-35.0); Mean Corpuscular Hemoglobin 28.6 pg (27.0-33.0); Mean Corpuscular Volume 87.2 fL (80.0-98.0); NRBC Abs Auto 0.000 X10*3/uL (0.0-0.012); NRBC Pct Auto 0.0 /100WBC (0.0-0.2); Platelet Count 408 X10*3/uL (160-400); Red Blood Count 4.37 X10*6/uL (4.20-5.50); White Blood Count 12.1 X10*3/uL (4.8-10.8)
[2025-01-16 10:19] LABS: Alanine Aminotransferase 11 U/L (0-31); Albumin Level 3.9 g/dL (3.5-5.0); Alkaline Phosphatase 47 U/L (39-117); Anion Gap 10 (12-20); Aspartate Amino Transferase 18 U/L (5-31); Blood Urea Nitrogen 10 mg/dL (9-16); Calcium 8.8 mg/dL (8.4-10.2); Carbon Dioxide 25 mmol/L (22-29); Chloride 110 mmol/L (96-108); Cholesterol 154 mg/dL (<200); Estimated Glomerular Filt Rate 56; HDL Cholesterol 31 mg/dL (>40); Potassium 3.9 mmol/L (3.3-5.1); Sodium 141 mmol/L (135-145); Total Protein 6.2 g/dL (6.5-8.0); Triglycerides 224 mg/dL (<150)
[2025-01-16 10:21] LABS: Appearance Urine Clear; Glucose Urine UA Negative (Negative); PH 5.5 (5.0-9.0); Specific Gravity - Urine 1.010 (1.005-1.025)
[2025-01-16 11:00] LABS: Atypical Lymph Absolute Manual 1.6 x10*3/uL; Atypical Lymphs Percent Manual 13 % (0-6); Basophils Abs Manual 0.1 X10*3/uL (0.0-0.2); Basophils Percent Manual 1 % (0-2); Eosinophils Absolute Manual 0.1 X10*3/uL (0.0-0.4); Eosinophils Percent Manual 1 % (0-4); Lymphocytes Absolute Manual 5.4 X10*3/uL (1.2-4.9); Lymphocytes Percent Manual 45 % (20-40); Monocytes Absolute Manual 0.2 X10*3/uL (0.1-1.2); Monocytes Percent Manual 2 % (2-11); Neutrophils Percent Manual 38 % (45-73)
[2025-01-16 11:01] LABS: Band Neutrophils Percent 0 % (3-5); Neutrophils Absolute Manual 4.6 X10*3/uL (2.0-8.3)
[2025-01-16 11:03] LABS: Burr Cells 1+ (0-2) /OIF; RBC Morphology NOTED
== END 2025-01-16 06:32 | disposition home or self-care (01) ==
LOC: HO.HMGCLDS 06:31
PROVIDERS: PCP Internal Medicine Medical Oncology; Visit Provider Internal Medicine Medical Oncology
DX: I10 Essential (primary) hypertension (principal); E11.9 Type 2 diabetes mellitus without complications; E66.9 Obesity, unspecified; R39.9 Unspecified symptoms and signs involving the genitourinary system
CPT/HCPCS: 36415; 80053; 80061; 81003; 85007; 85027; 85652

== ENCOUNTER 2025-01-17 11:33 | Outpatient (AMB) | payer OTHER, SELFPAY ==
--- NOTE | 2025-01-17 11:34 | MHC.OFFVISWM ---
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: No Allergies amoxicillin (Amoxicillin) Allergy (Unknown, Verified 01/17/25 11:38) HIVES Penicillins Allergy (Unknown, Verified 01/17/25 11:38) HIVES Sulfa (Sulfonamide Antibiotics) Allergy (Unknown, Verified 01/17/25 11:38) hives sulfamethoxazole (From Bactrim) Allergy (Unknown, Verified 01/17/25 11:38) HIVES trimethoprim (From Bactrim) Allergy (Unknown, Verified 01/17/25 11:38) HIVES Medication List - Last Reconciled 01/17/25 by MARKO Bland clonazepam 1 mg PO TID PRN lamotrigine (Lamictal) 200 mg PO BID metformin 1,000 mg PO BID paroxetine HCl 30 mg PO DAILY pioglitazone 30 mg PO DAILY tirzepatide (Mounjaro) mg subcut QWEEK HPI Comments Details: This?a?44?yo female who is s/p LSG without hiatal hernia repair on?04/19/[address] Melo. Presents for 2 years 9 months post op visit. She has not been seen in the office since 01/04/24. At that time, her weight was 195.6 lb with a BMI of 34.6. She states that she has not been seen in the office in over a year due to significant family issues that she was having at home. She reports resuming a structured meal plan over the last 1 month and is now re committed to herself and healthier living. She states that the highest weight in the last year was approximately 222 lb. PCP Rx Munjaro last month. Taking mvi Weight today is 195.6 pounds, with a BMI of 34.6.? Weight today is 207.2 lb with a BMI of 36.7. There has been a 25.2 pound weight loss,(initial weight 232.4 pounds) since starting the program on 02/09/22 reflecting a 10.8% total body weight loss and a weight loss of 4.3 pounds since surgery (operative weight 211.5 pounds) reflecting a 2% TBWL since surgery.? No complaints of nausea, emesis, abdominal pain or reflux. Reports infrequent but normal bowel movements every 1-2 days. not taking MVI Still smoking 1 PPD, advised to quit Current meal plan: coffee w little cream cup of beef/veg broth 1/2 c cottage cheese chicken, beef, vegetables, (not measuring) drinking 64 oz water, no soda or juice, no etoh Recommended meal plan at her last visit includes: Using Atkins ready to drink shakes per her request: Half the container (6 oz (with 6 oz of coffee or unsweetened 0at milk in the morning 1 hole ready to drink shake mid day Meal at night with 7 forks of protein and 7 of vegetables. Drinking 128 oz water, Exercise routine includes: problems with sciatic nerve upright stationary bike, 2 x per day, 3 x per week, not tracking calories could join [facility] Medical History BMI 37.0-37.9, adult History of seizure Anxiety Hx of bronchitis BMI 38.0-38.9,adult Obesity Back pain Elevated liver enzymes Hyperlipidemia Insomnia Non-insulin dependent type 2 diabetes mellitus Zinc deficiency Diabetes Surgical History S/P gastric sleeve procedure History of Hx of hernia repair Hx of tonsillectomy Family History Mother Arthritis Father No problems noted. Sister No problems noted. Brother No problems noted. Daughter No problems noted. Son No problems noted. Social History Household Members: Family and Children Housing: Apartment Are you a primary intensive care unit registered nurse to a significant other at home: No Do you presently have visiting nurse or other home services: No Alcohol intake: never Patient Tobacco Use Status: Current everyday Tobacco user Tobacco use type: Cigarette Cigarette Packs Per Day: 1 Cigarettes Per Day: 20 Years Smoked: 20 e-Cigarette/Vaping Use: Currently Using service: No Current occupational status: disabled Physical Exam Const General: healthy appearing and no acute distress Resp Effort & Inspection: normal respiratory effort Auscultation: clear to auscultation bilaterally Cardio Rate: regular rate Rhythm: regular rhythm GI Auscultation: normal bowel sounds Extrem General: Yes normal to inspection Assessment & Plan Assessment & Plan (1) S/P laparoscopic sleeve gastrectomy: Code(s): Z98.84 - Bariatric surgery status Category: Surgical Plan: Overall, patient states that she started a new meal plan approximately 1 month ago. We discussed the reasons why it was an ineffective plan. Patient was given information regarding right BMI shy. additionally, discussed exercise as a critical element to her success. She states she will join [employer], she was offered opportunity for discount paperwork to the Take the Interview but would prefer to go to [employer]. Discussed utilizing the stationary bike, treadmill, elliptical machine with a goal of tracking calories burned, goal 300 per day, or 2000 per week. We will have her return to the office in approximately 4-6 weeks. Additionally, she states that her primary care physician ordered some labs but not vitamin levels which we will check at her request. Additionally discussed adding bariatric multivitamin. She was taking a regular multivitamin. Any other low vitamin levels will be supplemented based upon results of her lab test Orders: Orders Vitamin D 25-OH Total Today E11.9 - Type 2 diabetes mellitus without complications, F32.A - Depression, unspecified, F41.9 - Anxiety disorder, unspecified, Z98.84 - Bariatric surgery status Zinc Today E11.9 - Type 2 diabetes mellitus without complications, F32.A - Depression, unspecified, F41.9 - Anxiety disorder, unspecified, Z98.84 - Bariatric surgery status Vitamin B1 Today E11.9 - Type 2 diabetes mellitus without complications, F32.A - Depression, unspecified, F41.9 - Anxiety disorder, unspecified, Z98.84 - Bariatric surgery status Vitamin B12 and Folate Today E11.9 - Type 2 diabetes mellitus without complications, F32.A - Depression, unspecified, F41.9 - Anxiety disorder, unspecified, Z98.84 - Bariatric surgery status TSH reflex Free T4 Today E11.9 - Type 2 diabetes mellitus without complications, F32.A - Depression, unspecified, F41.9 - Anxiety disorder, unspecified, Z98.84 - Bariatric surgery status Vitamin A Today E11.9 - Type 2 diabetes mellitus without complications, F32.A - Depression, unspecified, F41.9 - Anxiety disorder, unspecified, Z98.84 - Bariatric surgery status IRON PROFILE Today E11.9 - Type 2 diabetes mellitus without complications, F32.A - Depression, unspecified, F41.9 - Anxiety disorder, unspecified, Z98.84 - Bariatric surgery status Ferritin Today E11.9 - Type 2 diabetes mellitus without complications, F32.A - Depression, unspecified, F41.9 - Anxiety disorder, unspecified, Z98.84 - Bariatric surgery status
[2025-01-17 11:45] VITALS: BP 136/71; PULSE 96; TEMP 36.7; O2SAT 97; BMI 36.7
== END 2025-01-17 12:12 | disposition home or self-care (01) ==
LOC: HO.HBS 11:33
PROVIDERS: PCP Internal Medicine Medical Oncology; Visit Provider Physician Assistant Surgical
DX: E66.9 Obesity, unspecified (principal); Z68.36 Body mass index [BMI] 36.0-36.9, adult; Z90.3 Acquired absence of stomach [part of]; Z98.84 Bariatric surgery status
CPT/HCPCS: 99214

== ENCOUNTER → 2025-01-17 11:33 | Outpatient (BNVA) | payer OTHER, SELFPAY | PROVIDERS: PCP Internal Medicine Medical Oncology; Visit Provider Physician Assistant Surgical | DX: Z98.84 Bariatric surgery status (principal) | CPT/HCPCS: 99212 ==

== ENCOUNTER 2025-01-20 15:18 | Outpatient (REF) | payer OTHER, SELFPAY ==
[2025-01-20 17:41] LABS: Iron 22 mcg/dL (30-160); Percent Iron Saturation 8 % (15-50); Total Iron Binding Capacity 272 mcg/dL (228-428); Unsaturated Iron Binding 250 ug/dL
[2025-01-20 17:44] LABS: Ferritin 10 ng/mL (10-250)
[2025-01-20 17:52] LABS: Folate 11.8 ng/mL (> or = 4.0); Vitamin B12 340 pg/mL (200-900)
== END 2025-01-20 15:19 | disposition home or self-care (01) ==
LOC: HO.HMGCLDS 15:18
PROVIDERS: PCP Internal Medicine Medical Oncology; Referring Provider Physician Assistant Surgical; Visit Provider Internal Medicine Medical Oncology
DX: D72.820 Lymphocytosis (symptomatic) (principal); E11.9 Type 2 diabetes mellitus without complications; F41.9 Anxiety disorder, unspecified; F32.A Depression, unspecified; Z98.84 Bariatric surgery status
CPT/HCPCS: 36415; 82232; 82306; 82607; 82728; 82746; 83540; 84425; 84443; 84590; 84630; 88184; 88185

== ENCOUNTER 2025-02-12 11:35 | Emergency (ER) | payer OTHER, SELFPAY ==
--- NOTE | ~2025-02-12 | CT_ITS ---
EXAMINATION: CT LUMBAR SPINE WITHOUT CONTRAST CLINICAL INFORMATION: worsening lower back pain rad down LLE COMPARISON: None available. TECHNIQUE: Axial CT of the lumbar spine was performed without contrast scanning from lower T11 to the coccyx. Coronal and sagittal reformatted images were generated from the original axial data set. ALARA: The examination used one or more of the following radiation dose reduction techniques: Automated exposure control, iterative reconstruction, and/or adjustment of mA and/or KV. DLP: 1257 mGY*cm FINDINGS: There are 5 nonrib-bearing lumbar segments. There is mild wedging of L1 without visible fracture line suggesting that it is physiologic in nature. Mild disc space narrowing is noted between L1-2 and L4-5. Disc bulges noted at L2-3 and L3-4. L4-5 demonstrates central disc protrusion with encroachment of the left subarticular zone greater than right. There is mild spinal stenosis and mild left foraminal narrowing. Facet osteoarthritis is present at L3-4, L4-5, and L5-S1. There is a 5 mm solid nodule in the posterior segment right lower lobe. Visualized soft tissues are unremarkable aside from atherosclerotic calcifications in the aorta and iliac arteries. CT/CT lumbar spine wo IV con IMPRESSION: L4-5 demonstrates central disc herniation with probable encroachment of the left L5 nerve root and possible encroachment of the right. This would be better characterized by MRI. 5 mm pulmonary nodule is incidentally noted in the posterior segment right lower lobe. No further follow-up is indicated per Fleischner Society recommendations, unless the patient falls into a high risk category, in which case a 12 month follow-up CT chest without contrast is optional. High risk patients includes those with a history of smoking, first-degree relative with lung cancer, or exposure to uranium, radon, or asbestos. Electronically signed by: Aubrey Jimenez MD 02/12/2025 02:47 PM EDT
--- NOTE | ~2025-02-12 | XR_ITS ---
EXAMINATION: XR LUMBOSACRAL SPINE CLINICAL INFORMATION: atraumatic back pain rad down l leg COMPARISON: March 03, 2023 TECHNIQUE: Three views of the lumbosacral spine. FINDINGS: The vestigal ribs are present at T12. Surgical clips are present in the left upper quadrant. There are 5 non-rib bearing lumbar segments. Vertebral body height and alignment is preserved. T12-L1: Unremarkable L1-L2: There is mild disc space narrowing L2-L3: There is minimal disc space narrowing and small anterior osteophyte L3-L4: There is mild disc space narrowing. Small anterior osteophyte is seen. L4-L5: There is mild disc space narrowing and small anterior osteophytes. There is facet sclerosis and osteophytes L5-S1: Disc space is preserved. There is facet sclerosis and osteophytes. XR/XR lumbar spine 2-3V IMPRESSION: Mild degenerative disc disease and facet osteoarthritis similar to the prior. Electronically signed by: Aubrey Jimenez MD 02/12/2025 12:09 PM EDT
[2025-02-12 11:38] VITALS: BP 120/66; PULSE 80; RESP 18; TEMP 36.6; O2SAT 97; BMI 37.0
--- NOTE | 2025-02-12 11:46 | ED.BACK ---
HPI - Back Pain/Injury General Chief Complaint: Back Pain/Injury Stated Complaint: cant walk, back pain? Time Seen by Provider: 02/12/25 15:44 Source: patient Mode of arrival: ambulatory History of Present Illness ED Provider: Natalia ARGUETA Narrative: 44-year-old female with history of diabetes, current everyday smoker, states that approximately 3 weeks ago she woke up and had significant lower back discomfort primarily on the left and progressively worsened to radiating down the back portion of her left lower extremity, she denies any foot drop, she denies any history of IVDA, she denies any associated fevers or chills, she denies any bowel or bladder dysfunction, she states that her primary care doctor started her on dexamethasone as well as gabapentin but states that over the past 3 weeks a really has not helped. She states that the pain is significant and when she followed up with her primary care doctor today she was referred to the emergency room. Related Data Home Medications ?Medication ?Instructions ?Recorded ?Confirmed paroxetine HCl 10 mg tablet 30 mg PO DAILY 02/01/22 01/17/25 lamotrigine 200 mg tablet 200 mg PO BID 02/28/22 01/17/25 (Lamictal) clonazepam 2 mg tablet 1 mg PO TID PRN 01/17/25 01/17/25 metformin 500 mg tablet 1,000 mg PO BID 01/17/25 01/17/25 pioglitazone 30 mg tablet 30 mg PO DAILY 01/17/25 01/17/25 tirzepatide 2.5 mg/0.5 mL mg subcut QWEEK 01/17/25 01/17/25 subcutaneous pen injector (Mounjaro) Previous Rx's ?Medication ?Instructions ?Recorded ciprofloxacin HCl 0.3 % eye drops See Rx Instructions ophthalmic 02/03/25 (eye) .COMPLEX #5 mL Allergies Allergy/AdvReac Type Severity Reaction Status Date / Time amoxicillin (Amoxicillin) Allergy Unknown HIVES Verified 02/12/25 11:39 Penicillins Allergy Unknown HIVES Verified 02/12/25 11:39 Sulfa (Sulfonamide Allergy Unknown hives Verified 02/12/25 11:39 Antibiotics) sulfamethoxazole (From Allergy Unknown HIVES Verified 02/12/25 11:39 Bactrim) trimethoprim (From Bactrim) Allergy Unknown HIVES Verified 02/12/25 11:39 Review of Systems Review of Systems: Pertinent positives and negatives as stated in [facility] Past Medical History Medical History BMI 37.0-37.9, adult History of seizure Anxiety Hx of bronchitis BMI 38.0-38.9,adult Obesity Back pain Elevated liver enzymes Hyperlipidemia Insomnia Non-insulin dependent type 2 diabetes mellitus Zinc deficiency Diabetes Surgical History S/P gastric sleeve procedure History of Hx of hernia repair Hx of tonsillectomy Family History Family History Mother Arthritis Father No problems noted. Sister No problems noted. Brother No problems noted. Daughter No problems noted. Son No problems noted. Social History Social History Household Members: Family and Children Housing: Apartment Are you a primary hospice patient care secretary to a significant other at home: No Do you presently have visiting nurse or other home services: No Alcohol intake: never Patient Tobacco Use Status: Current everyday Tobacco user Tobacco use type: Cigarette Cigarette Packs Per Day: 1 Cigarettes Per Day: 20 Years Smoked: 20 Smoked in Last 30 Days: Yes e-Cigarette/Vaping Use: Currently Using Use of substances other than those prescribed or required for medical reasons: No Advance Directives: No Advance Directives Information Provided: Yes Do you have a plan to hurt others: No Plan Patient : No service: No Current occupational status: disabled Physical Exam Exam: Exam: VITAL SIGNS: Reviewed. GENERAL: Well developed, well nourished, in no acute distress. HEAD: Normocephalic/atraumatic EYES: PERRLA, EOMI EARS: Ext canals without abnormality NOSE: Nares patent bilateral OROPHARYNX: no oral lesions noted, posterior pharynx clear NECK: Supple, no adenopathy LUNGS: Normal breath sounds. No adventitious sounds or accessory muscle use. CARDIOVASCULAR: Regular rate and rhythm without noted murmurs ABDOMEN: Soft, non-tender, non-distended with bowel sounds. BACK: No obvious overlying skin changes, no midline vertebral tenderness to palpation or step-offs noted., straight leg test positive on the left MUSCULOSKELETAL: No tenderness, deformities, or effusions noted on gross inspection. EXTREMITIES: No cyanosis, clubbing or edema. SKIN: Inspection of the skin reveals no rashes NEUROLOGIC: Alert and oriented x 4. Strength and sensation to light touch were grossly intact x 4, DTRs intact. Vital Signs: Vital Signs: Last Vital Signs Temp 98.3 F 02/12/25 15:33 Pulse 75 02/12/25 18:34 Resp 18 02/12/25 18:34 BP 111/72 02/12/25 18:34 Pulse Ox 96 02/12/25 18:34 O2 Del Method Room Air 02/12/25 18:34 BMI result Body Mass Index 37.0 Course Course Course Narrative: This is a Rapid Medical Examination (RME) performed by Isidro Vicente PA-C in triage. Full HPI, ROS, assessment and treatment plan per primary provider in the Main ED. Hx: 44 yo F here from PCP office for eval of acute on chronic back pain. pain from lower back into left leg. hx sciatica, states this feels different. Plan: xrs Medical Decision Making Medical Decision Making MDM Narrative: 44-year-old female with history and clinical presentation, DD DX: Possible disc herniation/nerve root impingement lending itself to a significant lumbar radiculopathy, no concern for cauda equina, patient has no red flag history or symptoms at this time. 1655: I reached out to [facility] neurosurgery for consultation in terms of specific timeframe of follow-up for this patient, images were pushed over to the [facility] network. 1725: Angela from neurosurgery at [facility] recommends Lumbar MRI and agrees that reassuring that no foot drop or saddle anesthesia. 1855: Informed by nursing that patient has eloped. She was noted to be ambulating with a steady gait. Differential Diagnosis Differential Diagnoses: The differential diagnosis associated with the presentation includes See above Admission/Observation Consideration of admission/observation: Escalation of care including admission/observation considered See above Consult Healthcare Provider Management of the patient was discussed with: Janitorial Cleaner See above Independent Interpretation I performed an independent interpretation of an: Plain X-Ray and CT Scan Interpretation: See above Radiology Impression Discussion of test interpretation with radiology: I have reviewed the radiologist's reading. Radiologist Impression: See above Discharge Plan Discharge Clinical Impression: Lower back pain Patient Disposition: Elopement Prescriptions: No Action ciprofloxacin HCl 0.3 % drops See Rx Instructions ophthalmic (eye) .COMPLEX Qty: 5 0RF Rx Instructions: put 1-2 drps in affected eye(s) every 2hr up to 8 times/day x2days; then 4 times/day x5days ophthalmic (eye) paroxetine HCl 10 mg tablet 30 mg PO DAILY lamotrigine [Lamictal] 200 mg tablet 200 mg PO BID clonazepam 2 mg tablet 1 mg PO TID PRN Rx Instructions: administer 30 minutes before bedtime metformin 500 mg tablet 1,000 mg PO BID pioglitazone 30 mg tablet 30 mg PO DAILY Mounjaro 2.5 mg/0.5 mL pen injector subcut QWEEK Discharge Date/Time: 02/12/25 18:58 Print Language: Azeri
[2025-02-12 15:13] VITALS: BP 120/58; PULSE 75; RESP 18; TEMP 36.4; O2SAT 96
[2025-02-12 15:33] VITALS: BP 121/75; PULSE 73; RESP 15; TEMP 36.8; O2SAT 96
--- NOTE | 2025-02-12 15:37 | PC.NURSE ---
Pt comes in with ongoing sciatic and back pain. She reports that there is nothing that makes it better or worse, it is constant pain down her legs down to her ankles. Her regular PCP steel prescribed gabapentin and metha-something but they were ineffective. Denies any injury. Reports that walking is difficult, but uses no mobility device. Denies weakness, numbness, any other neuro syptoms.
[2025-02-12 16:12] VITALS: BP 110/70; PULSE 80; RESP 16; O2SAT 98
[2025-02-12 18:34] VITALS: BP 111/72; PULSE 75; RESP 18; O2SAT 96
--- NOTE | 2025-02-12 18:49 | MHC.EDTECH ---
Seen patient walk out to the waiting room. Nurses went to check if patient is in waiting room but did not see her..... elopement?
--- NOTE | 2025-02-12 18:58 | PC.NURSE ---
This RN looked outside for patient, patient not seen. MD aware stating patient eloped
== END 2025-02-12 18:58 | disposition left against medical advice (07) ==
PROVIDERS: Emergency Provider Student in an Organized Health Care Education/Training Program; PCP Internal Medicine Medical Oncology
DX: M54.50 Low back pain, unspecified (principal); Z79.899 Other long term (current) drug therapy
CPT/HCPCS: 72100; 72131; 99284

== ENCOUNTER → 2025-02-12 11:38 | Outpatient (BNV) | payer OTHER, SELFPAY | PROVIDERS: PCP Internal Medicine Medical Oncology; Visit Provider Radiology Diagnostic Radiology | DX: M51.26 Other intervertebral disc displacement, lumbar region (principal); M54.50 Low back pain, unspecified | CPT/HCPCS: 72100; 72131 ==

== ENCOUNTER 2025-02-20 09:23 | Outpatient (AMB) | payer OTHER, SELFPAY ==
[2025-02-20 09:34] VITALS: BMI 36.7
--- NOTE | 2025-02-20 09:34 | HO.SPINEOV ---
Vital Signs 02/20/25 09:34 Height 5 ft 3 in Weight 207 lb BMI 36.7 Intake Visit Reasons: severe lumbar pain and leg weakness Intake Note: Ms. Mcclelland is here today c/o severe low back pain and leg weakness. Meter Technician Required: No Allergies amoxicillin (Amoxicillin) Allergy (Unknown, Verified 02/20/25 09:35) HIVES Penicillins Allergy (Unknown, Verified 02/20/25 09:35) HIVES Sulfa (Sulfonamide Antibiotics) Allergy (Unknown, Verified 02/20/25 09:35) hives sulfamethoxazole (From Bactrim) Allergy (Unknown, Verified 02/20/25 09:35) HIVES trimethoprim (From Bactrim) Allergy (Unknown, Verified 02/20/25 09:35) HIVES Assessment & Plan Assessment & Plan (1) Lumbar disc herniation with radiculopathy: Code(s): M51.16 - Intervertebral disc disorders with radiculopathy, lumbar region Category: Medical Plan Dear Dr. Bhatti, Thank you for referring Patricia to our office today. She is a 44-year-old female who comes in today for evaluation of low back pain and shooting pain into her left lower extremity. She reports this has been ongoing for about 1 month. When describing the pain that shoots down her left lower extremity she states that it starts in her low back, shoots into her left posterior/lateral buttocks, travels down the lateral thigh encompasses part of the lateral knee, and terminates near the lateral calf on the left-hand side. She associates some tingling with the pain, and states that her left foot feels tingling / numb all throughout the day. In addition to this she reports some weakness of her left foot primarily with dorsiflexion. She rates the pain as a 10/10 and is in obvious agony during our conversation. She denies any known inciting incident for the pain and reports she simply awoke 1 morning with fairly severe pain. She has been seen by her primary care physician for this issue who obtained a CT scan for her and referred her to our office after her radiology report stated she had a disc herniation at L4-5. She is currently taking Tramadol, gabapentin, dexamethasone in an effort to mitigate her pain, however still reports 10/10 pain despite these medications. She has attempted a plethora of [id number] medications in an attempt to treat this including NSAIDs (despite her Hx of bariatric surgery), pain patches, pain creams and pain gels. She is only obtained very modest relief from these. She is now to the point where the pain is significantly affecting her activities of daily living, and she is unable to do much throughout the day besides sit down / lay down and rest. She denies any saddle anesthesia or bowel/bladder incontinence. PMH: Followed by bariatric surgery, s/p LSG without hiatal hernia repair on 04/19/22. Type 2 diabetes, insomnia, bipolar 1, PTSD, anxiety and depression, steatosis of liver, liver fibrosis, GERD, hepatomegaly, intra-abdominal adhesions. Social hx: The patient smokes about 1.5 packs of cigarettes per day. Denies any other substance use. Denies any alcohol use. Medications: Ciprofloxacin hydrochloride 0.3%, clonazepam, lamotrigine, metformin, paroxetine, pioglitazone, Mounjaro. Allergies: Amoxicillin, Bactrim, penicillin. Physical exam: The patient has about 3/5 strength with left-sided dorsiflexion EHL testing. Her plantar flexion is about 4/5 on the left. Her iliopsoas and knee extension/knee flexion is about 4/5 with fairly severe pain elicited to strength testing at this level. Her right lower extremity strength is 5/5 comparatively. (+) bilateral straight leg raise, much more severe on left-hand side. Notable hypoesthesia to light touch over left-sided anterior tibialis and foot compared to right side. Imaging review: CT scan of the lumbar spine completed here at [facility] shows disc herniation at L4-5 causing severe left-sided foraminal stenosis at this level. This would be better evaluated by MRI imaging, and is not seen very clearly. Impression: Ezequiel is a pleasant 44-year-old female comes in today for evaluation of low back pain and shooting pain into her left lower extremity x1 month. She has been evaluated by her primary care physician, obtain some imaging, and has been attempting a robust course of prescription medication treatment. Despite this, she reports worsening hypoesthesia of her left lower extremity, and worsening deficits of her strength, primarily in her foot. This is confirmed on physical examination. I am very concerned that she may have a large disc herniation at L4-5 which requires intervention to prevent permanent motor weakness/footdrop. I will be ordering her a stat MRI of the lumbar spine, and tentatively discussed the possibility of minimally invasive microdiskectomy at L4-5 to address this issue. The patient is agreeable to both the MRI and the proposition of surgery to fix this issue. I will call her when I review her MRI, which ideally will be completed within the next 1-3 days. Thank you for allowing us to care for your patient. The total time spent with this visit with this patient was 45 minutes reviewing history, physical exam, MRI imaging review, and implementation of treatment plan or further diagnostic testing Anthony Chatterjee MD,PhD [facility] Orders: Orders MR lumbar spine wo con Today M51.16 - Intervertebral disc disorders with radiculopathy, lumbar region Coding Level of Care Code New Pt Level 4 (24292) Diagnoses Lumbar disc herniation with radiculopathy M51.16
== END 2025-02-20 09:55 | disposition home or self-care (01) ==
LOC: HO.HNS 09:24
PROVIDERS: PCP Internal Medicine Medical Oncology; Visit Provider Physician Assistant
DX: M51.16 Intervertebral disc disorders with radiculopathy, lumbar region (principal)
CPT/HCPCS: 99204

== ENCOUNTER → 2025-02-20 09:23 | Outpatient (BNVA) | payer OTHER, SELFPAY | PROVIDERS: PCP Internal Medicine Medical Oncology; Visit Provider Physician Assistant | DX: M51.16 Intervertebral disc disorders with radiculopathy, lumbar region (principal) | CPT/HCPCS: 99202 ==

== ENCOUNTER → 2025-02-24 14:41 | Outpatient (BNV) | payer OTHER, SELFPAY | PROVIDERS: PCP Internal Medicine Medical Oncology; Visit Provider Radiology Diagnostic Radiology | DX: M51.26 Other intervertebral disc displacement, lumbar region (principal) | CPT/HCPCS: 72148 ==

== ENCOUNTER 2025-02-24 14:42 | Outpatient (REF) | payer OTHER, SELFPAY | END 2025-02-24 14:43 | disposition home or self-care (01) | LOC: HO.MRI 14:42 | PROVIDERS: PCP Internal Medicine Medical Oncology; Visit Provider Physician Assistant | DX: M51.16 Intervertebral disc disorders with radiculopathy, lumbar region (principal) | CPT/HCPCS: 72148 ==

== ENCOUNTER 2025-02-27 09:54 | Outpatient (REF) | payer OTHER, SELFPAY ==
[2025-02-27 13:14] LABS: MANUAL DIFF FLAG NO
[2025-02-27 13:18] LABS: Hematocrit 39.9 % (37.0-47.0); Hemoglobin 13.2 g/dl (12.0-16.0); Imm Gran Abs Auto 0.39 X10*3/uL (0.00-0.03); Imm Gran Pct Auto 2.2 % (0.0-0.4); Lymphocytes Absolute Auto 1.7 X10*3/uL (1.2-4.9); Mean Corpuscular HGB Conc 33.1 g/dl (31.0-35.0); Mean Corpuscular Hemoglobin 28.9 pg (27.0-33.0); Mean Corpuscular Volume 87.3 fL (80.0-98.0); NRBC Abs Auto 0.000 X10*3/uL (0.0-0.012); NRBC Pct Auto 0.0 /100WBC (0.0-0.2); Platelet Count 421 X10*3/uL (160-400); Red Blood Count 4.57 X10*6/uL (4.20-5.50); White Blood Count 17.9 X10*3/uL (4.8-10.8)
[2025-02-27 13:59] LABS: Alanine Aminotransferase 17 U/L (0-31); Albumin Level 4.1 g/dL (3.5-5.0); Alkaline Phosphatase 61 U/L (39-117); Anion Gap 13 (12-20); Aspartate Amino Transferase 16 U/L (5-31); Blood Urea Nitrogen 11 mg/dL (9-16); Calcium 9.4 mg/dL (8.4-10.2); Carbon Dioxide 23 mmol/L (22-29); Chloride 104 mmol/L (96-108); Cholesterol 168 mg/dL (<200); Estimated Glomerular Filt Rate > 60; HDL Cholesterol 44 mg/dL (>40); Potassium 4.2 mmol/L (3.3-5.1); Sodium 136 mmol/L (135-145); Total Protein 6.7 g/dL (6.5-8.0); Triglycerides 116 mg/dL (<150)
== END 2025-02-27 09:55 | disposition home or self-care (01) ==
LOC: HO.HMGCLDS 09:54
PROVIDERS: PCP Internal Medicine Medical Oncology; Referring Provider Nurse Practitioner Psychiatric/Mental Health; Visit Provider Internal Medicine Medical Oncology
DX: Z79.899 Other long term (current) drug therapy (principal)
CPT/HCPCS: 36415; 80053; 80061; 85025

== ENCOUNTER 2025-03-31 06:33 | Outpatient (REF) | payer OTHER, SELFPAY ==
[2025-03-31 10:27] LABS: MANUAL DIFF FLAG NO
[2025-03-31 10:46] LABS: Hematocrit 39.0 % (37.0-47.0); Hemoglobin 12.3 g/dl (12.0-16.0); Imm Gran Abs Auto 0.11 X10*3/uL (0.00-0.03); Imm Gran Pct Auto 1.0 % (0.0-0.4); Lymphocytes Absolute Auto 3.9 X10*3/uL (1.2-4.9); Mean Corpuscular HGB Conc 31.5 g/dl (31.0-35.0); Mean Corpuscular Hemoglobin 28.5 pg (27.0-33.0); Mean Corpuscular Volume 90.3 fL (80.0-98.0); NRBC Abs Auto 0.000 X10*3/uL (0.0-0.012); NRBC Pct Auto 0.0 /100WBC (0.0-0.2); Platelet Count 391 X10*3/uL (160-400); Red Blood Count 4.32 X10*6/uL (4.20-5.50); White Blood Count 11.3 X10*3/uL (4.8-10.8)
== END 2025-03-31 06:34 | disposition home or self-care (01) ==
LOC: HO.HMGCLDS 06:33
PROVIDERS: PCP Internal Medicine Medical Oncology; Visit Provider Internal Medicine Medical Oncology
DX: Z98.84 Bariatric surgery status (principal); M51.26 Other intervertebral disc displacement, lumbar region; E66.9 Obesity, unspecified; D72.820 Lymphocytosis (symptomatic); R53.83 Other fatigue
CPT/HCPCS: 36415; 82232; 83615; 85025

== ENCOUNTER 2025-03-31 11:18 | Outpatient (AMB) | payer OTHER, SELFPAY ==
--- NOTE | 2025-03-31 11:10 | MHC.OFFVISWM ---
VS Expanded 03/31/25 11:13 Height 5 ft 3 in Weight 218 lb BMI 38.6 Intake Visit Reasons: TV PO LSG 04/19/22 Allergies amoxicillin (Amoxicillin) Allergy (Unknown, Verified 02/20/25 09:35) HIVES Penicillins Allergy (Unknown, Verified 02/20/25 09:35) HIVES Sulfa (Sulfonamide Antibiotics) Allergy (Unknown, Verified 02/20/25 09:35) hives sulfamethoxazole (From Bactrim) Allergy (Unknown, Verified 02/20/25 09:35) HIVES trimethoprim (From Bactrim) Allergy (Unknown, Verified 02/20/25 09:35) HIVES Medication List - Last Reconciled 03/31/25 by MARKO Carvalho ciprofloxacin HCl 0.3% put 1-2 drps in affected eye(s) every 2hr up to 8 times/day x2days; then 4 times/day x5days ophthalmic (eye) clonazepam 1 mg PO TID PRN lamotrigine (Lamictal) 200 mg PO BID metformin 1,000 mg PO BID paroxetine HCl 30 mg PO DAILY pioglitazone 30 mg PO DAILY tirzepatide (Mounjaro) mg subcut QWEEK HPI Comments Details: This a 44 yo female who is s/p LSG without hiatal hernia repair on 04/19/[address] Melo. Presents for 3 year post op visit. She was lost to follow up for a while due to significant family issues that she was having at home. She states that the highest weight in the last year was approximately 222 lb. Weight at last visit 01/17/2025 was 207.2 lb with a BMI of 36.7. Initial weight 232.4 pounds since starting the program on 02/09/22, operative weight 211.5 pounds. Still smoking 1 PPD, advised to quit She reports she has to have surgery next month for a herniated disc in her back, affecting her left leg. This has affected her ability to walk, has to lay down often. Continues on Mounjaro. Blood sugars up and down Current meal plan: coffee w little cream cup of beef/veg broth 1/2 c cottage cheese chicken, beef, vegetables, (not measuring) drinking 64 oz water, no soda or juice, no etoh Taking mvi Recommended meal plan at her last visit includes: Using Atkins ready to drink shakes per her request: Half the container (6 oz (with 6 oz of coffee or unsweetened 0at milk in the morning 1 hole ready to drink shake mid day Meal at night with 7 forks of protein and 7 of vegetables. Drinking 128 oz water, Exercise routine includes: problems with sciatic nerve upright stationary bike, 2 x per day, 3 x per week, not tracking calories could join [facility] Medical History (Updated 03/31/25 @ 11:21 by MARKO Carvalho) Obesity BMI 37.0-37.9, adult History of seizure Anxiety Hx of bronchitis BMI 38.0-38.9,adult Back pain Elevated liver enzymes Hyperlipidemia Insomnia Non-insulin dependent type 2 diabetes mellitus Zinc deficiency Diabetes Surgical History S/P gastric sleeve procedure History of Hx of hernia repair Hx of tonsillectomy Family History Mother Arthritis Father No problems noted. Sister No problems noted. Brother No problems noted. Daughter No problems noted. Son No problems noted. Social History Household Members: Family and Children Housing: Apartment Are you a primary career orientation teacher to a significant other at home: No Do you presently have visiting nurse or other home services: No Alcohol intake: never Patient Tobacco Use Status: Current everyday Tobacco user Tobacco use type: Cigarette Cigarette Packs Per Day: 1 Cigarettes Per Day: 20 Years Smoked: 20 e-Cigarette/Vaping Use: Currently Using service: No Current occupational status: disabled Telehealth Telehealth Telehealth Platform: Telephone Location of provider rendering services: practice address Location of patient: address on file Patient Identification confirmed using: Name, : Yes Telehealth method: voice only Patient verbally consented to treatment: Yes Patient verbally consented to billing insurance company: Yes Patient informed of any privacy concerns related to visit: Yes Minutes spent on Phone/Video with Pt.: 15 Assessment & Plan Assessment & Plan (1) S/P laparoscopic sleeve gastrectomy: Code(s): Z98.84 - Bariatric surgery status Category: Medical Plan We discussed changing back to a plan from the [employer]. We discussed the importance of adequate protein intake especially in light of upcoming surgery, for healing and recovery. She is planning to discuss increasing Mounjaro dose with PCP which I support. Had labs done in January. RTC 3-4mo at which time she will hopefully be cleared for all activity and recovered from surgery.
[2025-03-31 11:13] VITALS: BMI 38.6
== END 2025-03-31 11:23 | disposition home or self-care (01) ==
LOC: HO.HBS 11:18
PROVIDERS: PCP Internal Medicine Medical Oncology; Visit Provider Physician Assistant Surgical
DX: E66.9 Obesity, unspecified (principal); Z68.38 Body mass index [BMI] 38.0-38.9, adult; Z90.3 Acquired absence of stomach [part of]; Z98.84 Bariatric surgery status
CPT/HCPCS: 98013

== ENCOUNTER 2025-04-08 06:02 | Day surgery (SDC) | payer OTHER, SELFPAY ==
[2025-04-03 10:28] VITALS: BMI 38.6
--- NOTE | 2025-04-03 12:00 | HO.ANESPROP2 ---
Documented by User: Kia Norwood NP 04/03/25 12:01 HPI - Anesthesia Eval Consult details Narrative: 44yo F for Left-sided approach for L4-5 MicroLumbar discectomy, 04/17/25 Anesthesia Pre-Procedure Meds Is the patient on any of the following meds?: GLP1/DPP4 PMFSH Active Problems Active Problems: All Active Problems Lumbar disc herniation with radiculopathy (Acute) Lumbar disc herniation (Acute) Tobacco abuse (Acute) Intra-abdominal adhesions (Acute) Hepatomegaly (Acute) S/P laparoscopic sleeve gastrectomy (Acute) GERD (gastroesophageal reflux disease) (Acute) Liver fibrosis (Acute) Steatosis, liver (Acute) Bipolar 1 disorder, depressed, moderate (Acute) PTSD (post-traumatic stress disorder) (Acute) Anxiety and depression (Acute) Morbid obesity (Acute) Obesity (Acute) Insomnia (Acute) Non-insulin dependent type 2 diabetes mellitus (Acute) Past Medical History Medical History Post traumatic stress disorder (PTSD) Fatty liver Bipolar disorder Obesity History of seizure (2006) Anxiety Hx of bronchitis BMI 38.0-38.9,adult Back pain Elevated liver enzymes Hyperlipidemia Insomnia Non-insulin dependent type 2 diabetes mellitus Zinc deficiency Diabetes Family History Family History Mother Arthritis Father No problems noted. Sister No problems noted. Brother No problems noted. Daughter No problems noted. Son No problems noted. Surgical History Surgical History S/P gastric sleeve procedure (04/19/22) History of Hx of hernia repair Hx of tonsillectomy History of Problems with Anesthesia: No Social History Social History Household Members: Family and Children Housing: Apartment Are you a primary critical care nurse to a significant other at home: Yes (children) Do you presently have visiting nurse or other home services: No Alcohol intake: never Patient Tobacco Use Status: Current everyday Tobacco user Tobacco use type: Cigarette Cigarette Packs Per Day: 2 Cigarettes Per Day: 40.0 Years Smoked: 27 Smoked in Last 30 Days: Yes e-Cigarette/Vaping Use: Currently Using Use of substances other than those prescribed or required for medical reasons: No Have you been hit, kicked, punched, or otherwise hurt by someone within the past year? If so, by whom?: No Are you DNR?: No Advance Directives: No Advance Directives Information Provided: Yes Advance Directives on File: No Healthcare Proxy: No Patient : No FDLMP: 03/31/2025 : No service: No Current occupational status: disabled Meds Allergies Allergy/AdvReac Type Severity Reaction Status Date / Time amoxicillin (Amoxicillin) Allergy Severe HIVES Verified 04/08/25 07:01 Penicillins Allergy Severe HIVES Verified 04/08/25 07:01 Sulfa (Sulfonamide Allergy Severe hives Verified 04/08/25 07:01 Antibiotics) sulfamethoxazole (From Allergy Severe HIVES Verified 04/08/25 07:01 Bactrim) trimethoprim (From Bactrim) Allergy Severe HIVES Verified 04/08/25 07:01 Home Medications ?Medication ?Instructions ?Recorded ?Confirmed ?Last Taken ?Type paroxetine HCl 10 mg tablet 20 mg PO BID 02/01/22 04/08/25 04/18/22 History lamotrigine 200 mg tablet 200 mg PO BID 02/28/22 04/08/25 04/19/22 06:30 History (Lamictal) clonazepam 2 mg tablet 1 mg PO TID PRN Anxiety 01/17/25 04/08/25 Unknown History metformin 500 mg tablet 1,000 mg PO BID 01/17/25 04/08/25 Unknown History pioglitazone 30 mg tablet 30 mg PO DAILY 01/17/25 04/08/25 Unknown History tirzepatide 2.5 mg/0.5 mL 2.5 mg subcut .QWEEKSUNDAY 01/17/25 04/08/25 03/30/25 History subcutaneous pen injector (Mounjaro) quetiapine 50 mg tablet 100 mg PO BEDTIME insomnia 04/08/25 04/08/25 Unknown History Exam Height,Weight and Vital Signs: Height 5 ft 3 in Weight 98.883 kg Pertinent Lab Results Pertinent Lab Results: Laboratory Tests 02/27/25 03/31/25 10:06 06:41 WBC 11.3 H Hgb 12.3 Hct 39.0 Plt Count 391 Sodium 136 Potassium 4.2 Chloride 104 Carbon Dioxide 23 BUN 11 Creatinine 0.79 Assessment and Plan Assessment Anesthesia Assessment: Chart Reviewed Final Anesthetic Review History of Problems with Anesthesia: No Documented by User: Bailey Santamaria MD 04/08/25 08:24 [facility] Past Medical History Medical History Post traumatic stress disorder (PTSD) Fatty liver Bipolar disorder Obesity History of seizure (2006) Anxiety Hx of bronchitis BMI 38.0-38.9,adult Back pain Elevated liver enzymes Hyperlipidemia Insomnia Non-insulin dependent type 2 diabetes mellitus Zinc deficiency Diabetes Family History Family History Mother Arthritis Father No problems noted. Sister No problems noted. Brother No problems noted. Daughter No problems noted. Son No problems noted. Family history of problems with anesthesia: No Surgical History Surgical History S/P gastric sleeve procedure (04/19/22) History of Hx of hernia repair Hx of tonsillectomy Social History Social History Household Members: Family and Children Housing: Apartment Are you a primary critical care nurse to a significant other at home: Yes (children) Do you presently have visiting nurse or other home services: No Alcohol intake: never Patient Tobacco Use Status: Current everyday Tobacco user Tobacco use type: Cigarette Cigarette Packs Per Day: 2 Cigarettes Per Day: 40.0 Years Smoked: 27 Smoked in Last 30 Days: Yes e-Cigarette/Vaping Use: Currently Using Use of substances other than those prescribed or required for medical reasons: No Have you been hit, kicked, punched, or otherwise hurt by someone within the past year? If so, by whom?: No Are you DNR?: No Advance Directives: No Advance Directives Information Provided: Yes Advance Directives on File: No Healthcare Proxy: No Patient : No FDLMP: 03/31/2025 : No service: No Current occupational status: disabled Meds Allergies Allergy/AdvReac Type Severity Reaction Status Date / Time amoxicillin (Amoxicillin) Allergy Severe HIVES Verified 04/08/25 07:01 Penicillins Allergy Severe HIVES Verified 04/08/25 07:01 Sulfa (Sulfonamide Allergy Severe hives Verified 04/08/25 07:01 Antibiotics) sulfamethoxazole (From Allergy Severe HIVES Verified 04/08/25 07:01 Bactrim) trimethoprim (From Bactrim) Allergy Severe HIVES Verified 04/08/25 07:01 Home Medications ?Medication ?Instructions ?Recorded ?Confirmed ?Last Taken ?Type paroxetine HCl 10 mg tablet 20 mg PO BID 02/01/22 04/08/25 04/18/22 History lamotrigine 200 mg tablet 200 mg PO BID 02/28/22 04/08/25 04/19/22 06:30 History (Lamictal) clonazepam 2 mg tablet 1 mg PO TID PRN Anxiety 01/17/25 04/08/25 Unknown History metformin 500 mg tablet 1,000 mg PO BID 01/17/25 04/08/25 Unknown History pioglitazone 30 mg tablet 30 mg PO DAILY 01/17/25 04/08/25 Unknown History tirzepatide 2.5 mg/0.5 mL 2.5 mg subcut .QWEEKSUNDAY 01/17/25 04/08/25 03/30/25 History subcutaneous pen injector (Mounjaro) quetiapine 50 mg tablet 100 mg PO BEDTIME insomnia 04/08/25 04/08/25 Unknown History Exam Airway Mallampati Class: II TM Dist: >3cm Neck ROM: Full Heart: rrr Lungs: cta Assessment and Plan Assessment Anesthesia Assessment: Anesthesia Plan Discussed Final Anesthetic Review Family History of Problems with Anesthesia: No NPO: Yes ASA Class: III Final Preanesthetic Review: No Changes in Pt Med Stat, Meds/Allgs Chart Reviewed, Consent Obtained/Reviewed and Anes Risks/Benef Reviewed Patient Risk: Intermediate Procedure Risk: Intermediate Anesthetic Plan Anesthetic Plan: GA and Agree w/ Assess. and Plan Disposition: Standard PACU
[2025-04-08] VITALS (14 sets, daily range): BP systolic 96–126; BP diastolic 50–80; PULSE 90–98; RESP 13–20; TEMP 36.5–36.8; O2SAT 90–99; BMI 38.7
--- NOTE | ~2025-04-08 | FL_ITS ---
EXAMINATION: FL GUIDANCE ONLY HISTORY: L4-5 Microdiscectomy Left side approach COMPARISON: None available. TECHNIQUE: Fluoroscopy time: 4.5 seconds. Cumulative Dose: 4.6356 mGy. DAP: 1.1981 Gycm2 Images: 1. FINDINGS: A single fluoroscopic spot film of the lumbar spine in the lateral projection demonstrates a probe at the L4-5 level. FL/FL guidance in OR IMPRESSION: Fluoroscopy during procedure. Please see procedure report for additional information. Electronically signed by: Stevie Murray MD 04/08/2025 09:04 AM [facility]
[2025-04-08] MEDS: Lactated Ringers 1,000 ML 100 ML IVCONT (06:30)
--- NOTE | 2025-04-08 07:02 | MHC.SHP ---
Pre-Procedural Eval Section A - 24 Hr Update-Section A only Date of Service: 04/08/25 The patient is an INPATIENT: No Section B - Complete if H&P > 30 days Chief Complaint: Intervertebral disc disorders with radiculopathy, Allergies: Allergies Allergy/AdvReac Type Severity Reaction Status Date / Time amoxicillin (Amoxicillin) Allergy Severe HIVES Verified 04/08/25 07:01 Penicillins Allergy Severe HIVES Verified 04/08/25 07:01 Sulfa (Sulfonamide Allergy Severe hives Verified 04/08/25 07:01 Antibiotics) sulfamethoxazole (From Allergy Severe HIVES Verified 04/08/25 07:01 Bactrim) trimethoprim (From Bactrim) Allergy Severe HIVES Verified 04/08/25 07:01 Review of Systems Sugical H&P ROS: Negative: Constitution, Cardiovascular, Respiratory, Neurological, Psychiatric, Hem-Onc, Allergic/Immunologic, Gastrointestinal, Genitourinary, Integumentary, Endocrine and Eyes/Ears/Nose/Throat and Yes, Specify: Musculoskeletal (Left foot drop) Exam Surgical H&P Exam: Normal: HEENT, Normal: Heart, Normal: Lungs, Normal: Extremities, Normal: Abdomen, Normal: Skin and Normal: Neurological Plan Diagnosis/Plan: Unchanged Left L4-5 microdiskectomy Time Spent With Patient Time: Total time managing care of this patient today _5___ minutes.
[2025-04-08 07:03] LABS: Glucose, Whole Blood 198 mg/dL (60-115)
[2025-04-08 07:08] LABS: UPreg QC Valid YES
--- NOTE | 2025-04-08 07:24 | PM.DS ---
DS: Providers Provider Date of Service: 04/08/25 Date of discharge: 04/08/25 Primary care physician: Stevie Bhatti MD Admitting clinician: Kalpesh Chatterjee DS: Diagnosis Discharge Diagnosis (1) Lumbar disc herniation: Status: Acute DS: Summary Time Attestation Discharge Coordination Time (in mins): 6 Quality: Safe Use of Opioids Does Pt have an Active Cancer Diagnosis on the Problem List?: No Quality: Stroke Does the patient have a stroke diagnosis?: No Physical Exam Vital Signs: Vital Signs: Last Vital Signs Temp 97.7 F 04/08/25 06:45 Pulse 98 04/08/25 06:45 Resp 17 04/08/25 06:45 BP 126/80 04/08/25 06:45 Pulse Ox 96 04/08/25 06:45 O2 Del Method Room Air 04/08/25 06:45 BMI result Body Mass Index 38.7 DS: Data Data Completed and Pending Completed studies during hospitalization [Text1]: Procedures Excision of Stomach, Percutaneous Endoscopic Approach, Vertical (04/19/22) Release Peritoneum, Percutaneous Endoscopic Approach (04/19/22) Repair Diaphragm, Percutaneous Endoscopic Approach (04/19/22) Labs on day of discharge: Laboratory Results - last 24 hr 04/08/25 04/08/25 06:14 07:00 POC Glucose 198 H Urine Test NEGATIVE Discharge Plan Discharge Patient Disposition: Home, Self-Care Referrals: Stevie Bhatti MD [Primary Care Provider, Internal Medicine] - 1 Week Discharge Medications: New docusate sodium [Colace] 100 mg capsule 100 mg PO BID Qty: 20 0RF oxycodone 5 mg tablet 5 mg PO Q4H PRN (Reason: pain) Qty: 20 0RF Rx Instructions: Partial Fill upon patient request. Continued quetiapine 50 mg tablet 100 mg PO BEDTIME paroxetine HCl 10 mg tablet 20 mg PO BID lamotrigine [Lamictal] 200 mg tablet 200 mg PO BID clonazepam 2 mg tablet 1 mg PO TID PRN (Reason: Anxiety) Rx Instructions: administer 30 minutes before bedtime metformin 500 mg tablet 1,000 mg PO BID pioglitazone 30 mg tablet 30 mg PO DAILY Mounjaro 2.5 mg/0.5 mL pen injector 2.5 mg subcut .QWEEKSUNDAY Discharge Orders: Discharge Order (Routine); Ordered 04/08/25 Ordered By: Francis Saxena Diet: Advance to usual diet Activity on Discharge: As tolerated Activity Restrictions/Additional Instructions: After your spinal surgery we ask you to observe the following restrictions/guidelines: Activity: It is normal to feel some discomfort as you increase your activity, but that will improve with time. We ask you avoid heavy lifting or acitivities that cause pain. As a general rule, 8lbs is a safe limit for lifting right after surgery. Walk as much as you feel comfortable but not to exhaustion. You will feel extra tired the first few days after surgery. Stay well hydrated. It is OK to walk up and down stairs You may return to driving when you are off narcotics (such as vicodin, oxycodone, dilaudid, etc), and you are back to normal functional capacity. If you have any concerns please check with office before driving. Return to work is specific to each patient and each surgery, so please speak with your doctor/PA at first follow up. Please bring paperwork such as FMLA at that time if you need it filled out. Medications: For optimum pain control, it is best to start with a combination of 500 mg of Tylenol every 4 hours with 600 mg of Motrin every 8 hours, and use narcotics as needed in between for breakthrough pain. We will give you a short supply of narcotics after surgery (usually one weeks worth). If you need more please call the office but do not use more than prescribed. You will need to give our office 48 hours notice if you need narcotics refilled and we do not fill narcotics on weekends or evenings. If you are on a narcotic, it is a good idea to take a stool softener such as colace or senna to avoid constipation If you take blood thinner such as aspirin, Plavix, Coumadin, Effient, Eliquis etc for conditions such as Afib, DVT, Pulmonary embolus, coronary disease, stents etc please speak with your surgeon about specific details as to when you can resume these medications. Follow up: Please call the office, , after surgery to arrange a 3 week follow up for wound check. Wound Care: You may remove your dressing on the first day after surgery. ?You may ?leave open to air. Please do not remove the steri strips underneath. they will fall off on their own in one week. IT IS NORMAL FOR THE WOUND TO OOZE OR BE BLOODY FOR A FEW DAYS AFTER SURGERY. ?IF THIS HAPPENS JUST PLACE NEW DRESSING OVER IT TO AVOID STAINING CLOTHES. You may shower on post op day # 1 We ask that you do not let the water soak the wound. If it does get wet, just towel dry lightly. Please do not scrub your incision or place any type of chemical/ointment on the wound. No tub baths, pools or jacuzzis for one month. If you have any leaking or redness from your wound, or fevers, please call office Print Language: [place]
--- NOTE | 2025-04-08 09:07 | W.PM.OPN ---
Operative Note Operative Note Date of Service: 04/08/25 Narrative: Preoperative diagnosis: Left L4-5 lumbar radiculopathy due to disc herniation Postoperative diagnosis: Same Procedure: Left L4-5 lumbar microdiskectomy with microscope Surgeon: Kalpesh Chatterjee MD, PhD [employer] Operator: bryon Miranda This patient is suffering from a left L5 lumbar radiculopathy. She was scheduled to be operated on next week but called that she is having progressive footdrop on the left. Therefore we moved her up to today. On exam she has a grade 3/5 left-sided footdrop. The patient was offered a lumbar microdiskectomy L4-5 to decompress the nerve root. The procedure complications were explained. The patient was consented. The patient was brought to the operating room and endotracheally intubated. The patient was turned in a prone position on the Aung frame. Prepping and draping was done followed by time-out. A mid lumbar incision was made followed by release of the paravertebral muscles on the left side to expose the L4-5 interspace. An intraoperative x-rays obtained to confirm the correct level. The microscope was brought in. A L4 laminotomy was done followed by opening of the flavum ligament. The L5 nerve root was identified and retracted medially to expose the L4-5 disc space. I could palpate a disc herniation medial from the L5 nerve root. The degenerative herniation was removed piecemeal with a pituitary.. The disc space was inspected and any residual disc fragments were removed. This resulted in an excellent decompression of the L5 nerve root. Hemostasis was done. The microscope was removed. Marcaine was injected intramuscularly.The incision was closed in two layers. Steri-Strips used to approximate the incision. An op-site were taken there was used to cover the incision. All sponge and needle counts were correct. Patient was extubated and transported in stable condition to recovery room. this procedure was done with the aid of a physician assistant professor of criminal justice who performed the initial exposure until the microscope was brought in and performed the closure of the incision. Anesthesia: General Blood loss: 10 mL Complications: None Specimen: None Surgical time: 55 minutes Disposition: Discharge home
== END 2025-04-08 12:49 | disposition home or self-care (01) ==
PROVIDERS: Nurse Practitioner; PCP Internal Medicine Medical Oncology; Visit Provider Neurological Surgery
PROC: (CPT 63030; principal; 2025-04-08 07:30)
DX: M51.16 Intervertebral disc disorders with radiculopathy, lumbar region (principal); M51.26 Other intervertebral disc displacement, lumbar region; M21.372 Foot drop, left foot; E11.9 Type 2 diabetes mellitus without complications; F31.9 Bipolar disorder, unspecified; K21.9 Gastro-esophageal reflux disease without esophagitis; K74.00 Hepatic fibrosis, unspecified; K76.0 Fatty (change of) liver, not elsewhere classified; K66.0 Peritoneal adhesions (postprocedural) (postinfection); F41.8 Other specified anxiety disorders; F43.10 Post-traumatic stress disorder, unspecified; Z79.84 Long term (current) use of oral hypoglycemic drugs; Z79.85 Long-term (current) use of injectable non-insulin antidiabetic drugs; Z79.899 Other long term (current) drug therapy; Z88.0 Allergy status to penicillin; Z88.2 Allergy status to sulfonamides; Z98.84 Bariatric surgery status; Z98.890 Other specified postprocedural states; F17.210 Nicotine dependence, cigarettes, uncomplicated
CPT/HCPCS: 63030; 81025; 82947; J0131; J1100; J1171; J1885; J2003; J2250; J2405; J2704; J3010; J3374

== ENCOUNTER → 2025-04-08 06:02 | Outpatient (BNV) | payer OTHER, SELFPAY | PROVIDERS: PCP Internal Medicine Medical Oncology; Visit Provider Neurological Surgery | DX: M51.26 Other intervertebral disc displacement, lumbar region (principal) | CPT/HCPCS: 63030; 99499 ==

== ENCOUNTER 2025-05-05 09:58 | Outpatient (AMB) | payer OTHER, SELFPAY ==
--- NOTE | 2025-05-05 10:19 | A.SPINEOV_ITS ---
Intake Visit Reasons: 1st post op Intake Note: Ms. Mcclelland is here today for her 1st post op. Certified Detention Deputy Required: No Allergies amoxicillin (Amoxicillin) Allergy (Severe, Verified 04/08/25 07:01) HIVES Penicillins Allergy (Severe, Verified 04/08/25 07:01) HIVES Sulfa (Sulfonamide Antibiotics) Allergy (Severe, Verified 04/08/25 07:01) hives sulfamethoxazole (From Bactrim) Allergy (Severe, Verified 04/08/25 07:01) HIVES trimethoprim (From Bactrim) Allergy (Severe, Verified 04/08/25 07:01) HIVES Assessment & Plan Assessment & Plan (1) S/P lumbar microdiscectomy: Code(s): Z98.890 - Other specified postprocedural states Category: Surgical Plan Procedure: Left L4-5 lumbar microdiskectomy Patricia is a pleasant 44-year-old female who underwent the above listed procedure with Dr. Chatterjee a few weeks ago. To recap she was evaluated in clinic for severe left lower extremity pain, and was moved up on her surgical schedule due to progressive left foot numbness and footdrop. Thankfully since her surgery her left lower extremity pain has resolved. Subjectively her strength in the left lower extremity has also very much so improved. The numbness of her left foot has also improved. She does still report weakness on the left lower extremity compared to the right, but does acknowledge that it is stronger than it was prior to surgery. She also reports some very low-grade low back pain, which sounds like incision site pain as the incision is still healing. She asked a few questions regarding the postoperative healing course which I answered to the best of my ability. No new neurological deficits. The patient ambulates well and rises from a seated position without difficulty. Her posterior incision site is closed and well healing. She uses no assistive devices to ambulate. Notably, she has full 5/5 strength of left sided dorsiflexion & EHL, but does still report some hypoesthesia over the dorsal surface of her left foot. I would like to follow up with Simran again in 6 weeks for a 2nd postoperative visit. Anthony Chatterjee MD,PhD [facility] Coding Level of Care Code Global (41245) Diagnoses S/P lumbar microdiscectomy Z98.890
== END 2025-05-05 10:35 | disposition home or self-care (01) ==
LOC: HO.HNS 09:59
PROVIDERS: PCP Internal Medicine Medical Oncology; Visit Provider Physician Assistant
DX: Z98.890 Other specified postprocedural states (principal)
CPT/HCPCS: 99024

== ENCOUNTER → 2025-05-05 09:58 | Outpatient (BNVA) | payer OTHER, SELFPAY | PROVIDERS: PCP Internal Medicine Medical Oncology; Visit Provider Physician Assistant | DX: Z47.89 Encounter for other orthopedic aftercare (principal); M79.605 Pain in left leg; R20.0 Anesthesia of skin; Z98.890 Other specified postprocedural states | CPT/HCPCS: 99212 ==